=== PATIENT | male | born 1950 | race Caucasian/White ===

== ENCOUNTER 2018-07-09 09:30 | Emergency (ER) | payer OTHER, MEDICARE ==
[2018-07-09] MEDS ORDERED: HYDROmorphone 2 MG/ML SDV IM SCH (10:00)
--- NOTE | 2018-07-09 10:04 | EDM.PDOC ---
ED HPI GENERAL MEDICAL PROBLEM - General Stated Complaint: HIP INJURY Time Seen by Provider: 07/09/18 09:30 Source of Information: Reports: Patient History Limitations: Reports: No Limitations - History of Present Illness INITIAL COMMENTS - FREE TEXT/NARRATIVE: Pt was brought in by EMS to the emergency room. According to patient he just got out of the house and ws trying to get his polaris ranger on to the trailer, slipped on a thin sheet of ice and fell directly on his right hip. Happened around 8 am today. Could not move and had severe pain in the groin and hip and hence called ambulance. No radiation of pain. No other injuries. In the emergency room, Patient rates his pain at 8/10 but with any movement pain goes to 10/10. No tingling or numbness in the right lower extremity. No incontinence of urine or stool. Last meal was around 8 am today. Onset: Today, Sudden Onset Date: 07/09/18 Onset Time: 08:00 Location: Reports: Lower Extremity, Right Quality: Reports: Ache Severity: Severe Improves with: Reports: Immobilization Worsens with: Reports: Movement Context: Reports: Other (fall with direct hit) Associated Symptoms: Denies: Confusion, Chest Pain, Diaphoresis, Fever/Chills, Headaches, Nausea/Vomiting, Rash, Seizure, Shortness of Breath, Syncope, Weakness - Related Data Allergies Allergy/AdvReac Type Severity Reaction Status Date / Time No Known Allergies Allergy Verified 09/06/14 08:41 Home Meds: Home Meds Valsartan [Diovan] 160 mg PO DAILY 02/16/13 [History] hydroCHLOROthiazide [Hydrochlorothiazide] 12.5 mg PO DAILY 02/16/13 [History] Aspirin 325 mg PO DAILY 09/06/14 [History] Past Medical History Cardiovascular History: Reports: Afib Musculoskeletal History: Reports: Back Pain, Chronic Neurological History: Reports: Parkinson's, Other (See Below) Other Neuro History: PTSD - Past Surgical History Musculoskeletal Surgical History: Reports: Knee Replacement Social & Family History - Living Situation & Occupation Living situation: Reports: , Other ED ROS GENERAL - Review of Systems Review Of Systems: See Below Constitutional: Denies: Fever, Chills HEENT: Denies: Rhinitis, Throat Pain Respiratory: Denies: Shortness of Breath, Cough, Sputum Cardiovascular: Denies: Chest Pain, Lightheadedness GI/Abdominal: Denies: Abdominal Pain, Nausea, Vomiting : Denies: Frequency, Urgency Musculoskeletal: Reports: Joint Pain, Joint Swelling Skin: Denies: Bruising, Pruritis, Rash ED EXAM, GENERAL - Physical Exam Exam: See Below Exam Limited By: No Limitations General Appearance: Alert, WD/WN, Moderate Distress Eye Exam: Bilateral Eye: EOMI, PERRL Ears: Normal External Exam, Normal Canal, Hearing Grossly Normal, Normal TMs Nose: Normal Inspection, Normal Mucosa, No Blood Throat/Mouth: Normal Inspection, Normal Lips, Normal Teeth, Normal Gums, Normal Oropharynx, Normal Voice, No Airway Compromise Head: Atraumatic, Normocephalic Neck: Normal Inspection, Supple, Non-Tender, Full Range of Motion Respiratory/Chest: No Respiratory Distress, Lungs Clear, Normal Breath Sounds, No Accessory Muscle Use, Chest Non-Tender Cardiovascular: Normal Peripheral Pulses, No Edema, No Gallop, No JVD, No Murmur , No Rub, Irregularly Irregular GI/Abdominal: Normal Bowel Sounds, Soft, Non-Tender, No Organomegaly, No Distention, No Abnormal Bruit, No Mass Extremities: No Pedal Edema, Normal Capillary Refill (good pedal pulses), Other (Right lower extremity: there is obvious shortenening of the right lower extremity.Also the foot deviates laterally. Very tender over the great trochanter to pressure. + tenderness over the head of the femur to palpation.) Neurological: Alert, Oriented Course - Vital Signs Text/Narrative:: Pt does appear to have acute hip fracture from examination. His Right hip X-ray does show greater trochanter fracture,also the femoral shaft is fracture at the junction of the trochanters, with avulsion fracture of the lesser trochanter. There is minimal swelling of the hip. I have ordered CBC and BMP.Pt rates his pain at 10/10, He did receive Dilaudid 1mg and also IV has beverly started, and will have him on NS at 100cc/hr, and will keep him NPO. Also I did contact . Discuss with referral dispatch manager . Her recommendation was to transfer patient to the nearest available facility that can take care of the patient. I did contact [facility] and discuss patient with Dr. Meneses, Ortho labor relations teacher, he did agree to accept patient. Also discussed patient with Dr. Green, the hospitalist labor relations teacher.Pt is in full body Vacuum mattress and feels comfortable , and his hip is stabilized. I have not tried to splint him. Pt will be transferred by ALS ambulance to [facility]. - Orders/Labs/Meds Labs: Laboratory Tests 07/09/18 07/09/18 Range/Units 10:15 10:15 WBC 11.3 H D (4.0-11.0) K/uL RBC 4.95 (4.50-6.50) M/uL Hgb 16.0 (13.0-18.0) g/dL Hct 46.4 (40.0-54.0) % MCV 94 (76-96) fL MCH 32.3 H (27.0-32.0) pg MCHC 34.5 (31.0-35.0) g/dL RDW 12.2 (11.0-16.0) % Plt Count 303 D (150-400) K/uL MPV 8.7 (6.0-10.0) fL Neut % (Auto) 85.1 H (45.0-70.0) % Lymph % (Auto) 5.0 L (20.0-40.0) % Rowan % (Auto) 9.8 (3.0-10.0) % Eos % (Auto) 0.0 L (1.0-5.0) % Baso % (Auto) 0.1 (0.0-0.5) % Neut # (Auto) 9.60 H (2.00-7.50) K/uL Lymph # (Auto) 0.56 L (1.50-4.00) K/uL Rowan # (Auto) 1.11 H (0.20-0.80) K/uL Eos # (Auto) 0.00 L (0.04-0.40) K/uL Baso # (Auto) 0.01 L (0.02-0.10) K/uL Sodium 136 (136-145) mmol/L Potassium 4.0 (3.5-5.1) mmol/L Chloride 98 (98-107) mmol/L Carbon Dioxide 26.4 (21.0-32.0) mmol/L Anion Gap 15.6 H (5.0-15.0) mmol/L BUN 28 H D (8-26) mg/dL Creatinine 1.00 (0.70-1.30) mg/dL Est Cr Clr Drug Dosing TNP Estimated GFR (MDRD) > 60 (>60) MLS/MIN BUN/Creatinine Ratio 28.0 H (6-25) Glucose 129 H D (74-100) mg/dL Calcium 8.3 L (8.5-10.1) mg/dL Departure - Departure Time of Disposition: 11:30 Disposition: DC/Tfer to Acute Hospital 02 Condition: Fair Clinical Impression: Fracture of femur, intertrochanteric, right, closed - Discharge Information *PRESCRIPTION DRUG MONITORING PROGRAM REVIEWED*: Not Applicable *COPY OF PRESCRIPTION DRUG MONITORING REPORT IN PATIENT LENIN: Not Applicable - Problem List & Annotations (1) Fracture of femur, intertrochanteric, right, closed SNOMED Code(s): 52906445 Code(s): S72.141A - DISPLACED INTERTROCHANTERIC FRACTURE OF RIGHT FEMUR, INIT Status: Acute Current Visit: Yes - Problem List Review Problem List Initiated/Reviewed/Updated: Yes - Assessment/Plan Assessment:: Right hip great and lesser trochanteric fracture with upper shaft fracture Plan: Pt does appear to have acute hip fracture from examination. His Right hip X-ray does show greater trochanter fracture,also the femoral shaft is fracture at the junction of the trochanters, with avulsion fracture of the lesser trochanter. There is minimal swelling of the hip. I have ordered CBC and BMP.Pt rates his pain at 10/10, He did receive Dilaudid 1mg and also IV has beverly started, and will have him on NS at 100cc/hr, and will keep him NPO. Also I did contact . Discuss with referral dispatch manager . Her recommendation was to transfer patient to the nearest available facility that can take care of the patient. I did contact [facility] and discuss patient with Dr. Meneses, Ortho labor relations teacher, he did agree to accept patient. Also discussed patient with Dr. Green, the hospitalist labor relations teacher.Pt is in full body Vacuum mattress and feels comfortable , and his hip is stabilized. I have not tried to splint him. Normal neurovascular exam of the extremity, good pedal pulses. Pt will be transferred by ALS ambulance to [facility].
[2018-07-09] MEDS ORDERED: HYDROmorphone 2 MG/ML Syringe ONE (10:10)
[2018-07-09] MEDS ORDERED: Sodium Chloride 0.9% 1,000 ML IV SCH (10:30)
--- NOTE | 2018-07-09 10:56 | CR ---
DATE OF SERVICE: 07/09/18 CLINICAL DATA: fall with right hip deformity RIGHT HIP: There is a comminuted displaced intertrochanteric fracture through the proximal right femur. There is medial displacement and angulation of the distal fragment with respect to the proximal. No other acute abnormalities. [id number] [facility]
== END 2018-07-09 12:00 ==
LOC: LB.ED 09:30
DX: S72.141A Displaced intertrochanteric fracture of right femur, initial encounter for closed fracture (principal); I48.92 Unspecified atrial flutter; Z79.899 Other long term (current) drug therapy; Z79.82 Long term (current) use of aspirin; W00.0XXA Fall on same level due to ice and snow, initial encounter
CPT/HCPCS: 36415; 73502-RT; 80048; 85025; 96372; 99284-25; A0425; A0429; J1170; J7030

== ENCOUNTER 2019-09-24 08:37 | Emergency (ER) | payer OTHER, MEDICARE ==
[2019-09-24 09:26] VITALS: BP 123/81
--- NOTE | 2019-09-24 11:08 | EDM.PDOC ---
ED HPI GENERAL MEDICAL PROBLEM - General Stated Complaint: Right foot pain Time Seen by Provider: 09/24/19 09:30 Source of Information: Reports: Patient History Limitations: Reports: No Limitations - History of Present Illness INITIAL COMMENTS - FREE TEXT/NARRATIVE: This is a 69yo M with an injury of the right lower ankle for the past week. He has been non-weight bearing and has swelling that has improved the the past few days. He denies any other injuries or concerns. Onset: Sudden Duration: Week(s): Location: Reports: Lower Extremity, Right Quality: Reports: Ache, Pressure Severity: Moderate Improves with: Reports: None Worsens with: Reports: Movement Associated Symptoms: Reports: No Other Symptoms Treatments MACHINE MARKER: Reports: Acetaminophen - Related Data Allergies Allergy/AdvReac Type Severity Reaction Status Date / Time No Known Allergies Allergy Verified 02/09/19 12:47 Home Meds: Home Meds Valsartan [Diovan] 320 mg PO DAILY 02/16/13 [History] hydroCHLOROthiazide [Hydrochlorothiazide] 25 mg PO DAILY 02/16/13 [History] Budesonide/Formoterol [Symbicort 160-4.5 MCG] 1 puff INH BID 07/09/18 [History] Carbidopa/Levodopa [Carbidopa-Levo ER 25-100] 1 tab PO TID 07/09/18 [History] Citalopram [Citalopram HBr] 20 mg PO DAILY 07/09/18 [History] Diltiazem HCl [Diltiazem 24Hr ER] 120 mg PO DAILY 07/09/18 [History] Multivitamin [Multivitamins] 1 tab PO DAILY 07/09/18 [History] Nitroglycerin 0.4 mg SL ASDIRECTED 07/09/18 [History] Acetaminophen/Diphenhydramine [Tylenol Pm Ex-Strength Caplet] 2 tab PO BEDTIME 02/05/19 [History] Aspirin [Lela Chewable Aspirin] 81 mg PO DAILY 02/05/19 [History] Calcitonin,[place],Synthetic [Calcitonin-[place]] 1 spray STANLEY DAILY 02/05/19 [ History] Hydrocodone/Acetaminophen [Hydrocodon-Acetaminophen 5-325] 1 tab PO Q6HR PRN 02/14 [History] Past Medical History HEENT History: Reports: None Cardiovascular History: Reports: Afib Musculoskeletal History: Reports: Back Pain, Chronic Neurological History: Reports: Parkinson's, Other (See Below) Other Neuro History: PTSD Endocrine/Metabolic History: Reports: None Hematologic History: Reports: None - Past Surgical History HEENT Surgical History: Reports: None Musculoskeletal Surgical History: Reports: Knee Replacement Social & Family History - Family History Family Medical History: Noncontributory - Living Situation & Occupation Living situation: Reports: , Other Review of Systems - Review of Systems Review Of Systems: Comprehensive ROS is negative, except as noted in HPI. ED EXAM, GENERAL - Physical Exam Exam: See Below Exam Limited By: No Limitations General Appearance: Alert, WD/WN, No Apparent Distress Ears: Normal External Exam Nose: Normal Inspection Throat/Mouth: Normal Inspection Head: Atraumatic, Normocephalic Neck: Normal Inspection Respiratory/Chest: No Respiratory Distress, Lungs Clear, Normal Breath Sounds Cardiovascular: Normal Peripheral Pulses, Regular Rate, Rhythm Peripheral Pulses: 2+: Dorsalis Pedis (L), Dorsalis Pedis (R) GI/Abdominal: Normal Bowel Sounds Extremities: Pedal Edema (Right ankle and foot), Redness Neurological: Alert, Oriented Psychiatric: Normal Affect, Normal Mood Skin Exam: Ecchymosis, Increased Warmth Course - Vital Signs Last Recorded V/S: Last Vital Signs Temp 36.7 C 09/24/19 09:22 Pulse Resp 14 09/24/19 09:22 BP 123/81 09/24/19 09:22 Pulse Ox 98 09/24/19 09:22 - Orders/Labs/Meds Orders: Active Orders 24 hr Category Date Time Status Foot 2V Rt [CR] Stat Exams 09/24/19 09:17 Taken Departure - Departure Time of Disposition: 09:45 Disposition: Home, Self-Care 01 Condition: Good Clinical Impression: Right ankle sprain Qualifiers: Encounter type: initial encounter Involved ligament of ankle: other ligament Qualified Code(s): S93.491A - Sprain of other ligament of right ankle, initial encounter - Discharge Information Instructions: Ankle Sprain, [id number], Acute Pain, Adult Referrals: PCP,None [Primary Care Provider] - Additional Instructions: Follow up in 1 week in clinic withDr. Quo. Ice elevate above the heart. Tylenol and Ibuprofen alternating. Venu wrap off at night and back on in AM. Sepsis Event Note - Evaluation Sepsis Screening Result: No Definite Risk - Focused Exam Vital Signs: Vital Signs Temp Resp BP Pulse Ox 09/24/19 09:22 36.7 C 14 123/81 98 Date Exam was Performed: 09/24/19 Time Exam was Performed: 11:03 - Problem List & Annotations (1) Right ankle sprain SNOMED Code(s): 07102402 Code(s): S93.401A - SPRAIN OF UNSPECIFIED LIGAMENT OF RIGHT ANKLE, INIT ENCNTR Status: Acute Priority: High Qualifiers: Encounter type: initial encounter Involved ligament of ankle: other ligament Qualified Code(s): S93.491A - Sprain of other ligament of right ankle , initial encounter - Problem List Review Problem List Initiated/Reviewed/Updated: Yes - My Orders Last 24 Hours: My Active Orders 09/24/19 09:17 Foot 2V Rt [CR] Stat - Assessment/Plan Last 24 Hours: My Active Orders 09/24/19 09:17 Foot 2V Rt [CR] Stat Plan: Counseled on supportive and conservative care and management. Discussed close f/ u and rtc or ER for repeat xray and evaluation if symptoms do not improve, or worse. Counseled on f/u. Discussed use of a boot and wrap.
--- NOTE | 2019-09-24 13:23 | CR ---
DATE OF SERVICE: 09/24/19 CLINICAL DATA: Foot injury. RIGHT FOOT: No priors. There are osteoarthritic changes involving multiple joints. There is a corticated osseous density in the lateral aspect of the foot adjacent to the talonavicular joint, most likely representing an old bony avulsion. No acute abnormalities. There are vascular calcifications in the soft tissues. [id number] [facility]
== END 2019-09-24 09:40 | disposition home or self-care (01) ==
LOC: LB.ED 08:37
DX: S93.491A Sprain of other ligament of right ankle, initial encounter (principal); I48.91 Unspecified atrial fibrillation; G20 Parkinson's disease; Z79.899 Other long term (current) drug therapy; Z79.82 Long term (current) use of aspirin; X58.XXXA Exposure to other specified factors, initial encounter
CPT/HCPCS: 73620-RT; 99282; 99283-25

== ENCOUNTER 2020-05-14 15:04 | Emergency (ER) | payer OTHER, MEDICARE ==
--- NOTE | 2020-05-14 15:51 | EDM.PDOC ---
ED HPI GENERAL MEDICAL PROBLEM - General Chief Complaint: Cardiovascular Problem Stated Complaint: NAUSEA/VOMITING Time Seen by Provider: 05/14/20 17:15 Source of Information: Reports: Patient - History of Present Illness Onset: Today Onset Date: 05/14/20 Onset Time: 12:30 Duration: Hour(s):, Improving Location: Reports: Chest, Other (vomiting, sweats) Severity: Mild Improves with: Reports: Other (Nitro too 2 pills ) Associated Symptoms: Reports: Nausea/Vomiting Treatments [employer]KE DES[employer]ER: Reports: Nitroglycerin - Related Data Allergies Allergy/AdvReac Type Severity Reaction Status Date / Time No Known Allergies Allergy Verified 05/14/20 19:18 Home Meds: Home Meds Valsartan [Diovan] 320 mg PO DAILY 02/16/13 [History] hydroCHLOROthiazide [Hydrochlorothiazide] 25 mg PO DAILY 02/16/13 [History] Budesonide/Formoterol [Symbicort 160-4.5 MCG] 1 puff INH BID 07/09/18 [History] Carbidopa/Levodopa [Carbidopa-Levo ER 25-100] 1 tab PO TID 07/09/18 [History] Citalopram [Citalopram HBr] 20 mg PO DAILY 07/09/18 [History] Diltiazem HCl [Diltiazem 24Hr ER] 120 mg PO DAILY 07/09/18 [History] Multivitamin [Multivitamins] 1 tab PO DAILY 07/09/18 [History] Nitroglycerin 0.4 mg SL ASDIRECTED 07/09/18 [History] Acetaminophen/Diphenhydramine [Tylenol Pm Ex-Strength Caplet] 2 tab PO BEDTIME 02/05/19 [History] Aspirin [Lela Chewable Aspirin] 81 mg PO DAILY 02/05/19 [History] Calcitonin,[place],Synthetic [Calcitonin-[place]] 1 spray STANLEY DAILY 02/05/19 [History] Hydrocodone/Acetaminophen [Hydrocodon-Acetaminophen 5-325] 1 tab PO Q6HR PRN 02/05/19 [History] Past Medical History HEENT History: Reports: None Cardiovascular History: Reports: Afib Musculoskeletal History: Reports: Back Pain, Chronic Neurological History: Reports: Parkinson's, Other (See Below) Other Neuro History: PTSD Endocrine/Metabolic History: Reports: None Hematologic History: Reports: None - Past Surgical History HEENT Surgical History: Reports: None Musculoskeletal Surgical History: Reports: Knee Replacement Social & Family History - Family History Family Medical History: No Pertinent Family History - Living Situation & Occupation Living situation: Reports: , Other ED ROS GENERAL - Review of Systems Review Of Systems: See Below Constitutional: Reports: Fever, Diaphoresis HEENT: Reports: No Symptoms Respiratory: Reports: No Symptoms Cardiovascular: Reports: Other (a fib) Endocrine: Reports: No Symptoms Musculoskeletal: Reports: Joint Pain (rt shoulder) Skin: Reports: Bruising Neurological: Reports: No Symptoms Psychiatric: Reports: No Symptoms Hematologic/Lymphatic: Reports: Easy Bruising Immunologic: Reports: No Symptoms ED EXAM, GENERAL - Physical Exam Exam: See Below Exam Limited By: Other (In wheelchair unable to ambulate) General Appearance: Alert, No Apparent Distress Eye Exam: Bilateral Eye: PERRL Ears: Normal External Exam Nose: Normal Inspection, Normal Mucosa Throat/Mouth: Normal Inspection Head: Atraumatic, Normocephalic Neck: Normal Inspection, Supple Respiratory/Chest: No Respiratory Distress, Other (Exp wheeze Rt lung) Cardiovascular: Irregularly Irregular GI/Abdominal: Normal Bowel Sounds, Soft, Non-Tender, Distended (umbilical hernia), Hernia, Other (Male) Exam: Deferred Rectal (Males) Exam: Deferred Neurological: Alert, Oriented, CN II-XII Intact Psychiatric: Normal Affect, Normal Mood Skin Exam: Warm, Dry (bruising) Lymphatic: No Adenopathy Course - Vital Signs Last Recorded V/S: Last Vital Signs Temp 35.6 C L 05/14/20 15:49 Pulse 108 H 05/14/20 15:49 Resp 20 05/14/20 15:49 BP 101/64 05/14/20 15:49 Pulse Ox 93 L 05/14/20 15:49 - Orders/Labs/Meds Orders: Active Orders 24 hr Category Date Time Status EKG Documentation Completion [RC] ASDIRECTED Care 05/14/20 15:59 Active CXR [Chest 1V Frontal] [CR] Stat Exams 05/14/20 15:57 Taken Chest 2V [CR] Stat Exams 05/14/20 Taken UA W/MICROSCOPIC [URIN] Stat Lab 05/14/20 16:29 Ordered Gabapentin [Neurontin] Med 05/14/20 16:45 Active 600 mg PO DAILY Levofloxacin/Dextrose 5%-Water [Levaquin in D5W 750 MG/ Med 05/14/20 17:14 Active 150 ML] 750 mg Levofloxacin/Dextrose 5%-Water [Levaquin in D5W 750 MG/ 150 ML] 150 ml IV ONETIME Ondansetron [Zofran ODT] Med 05/14/20 16:50 Active 4 mg PO Q4H PRN Isolation [COMM] Routine Oth 05/14/20 16:02 Active Medication Orders Gabapentin (Neurontin) 600 mg PO DAILY SAI Levofloxacin/Dextrose 750 mg/ (Levofloxacin/Dextrose) 300 mls @ 100 mls/hr IV ONETIME ONE Stop: 05/14/20 20:13 Ondansetron HCl (Zofran Odt) 4 mg PO Q4H PRN PRN Reason: Nausea/Vomiting Labs: Laboratory Tests 05/14/20 05/14/20 05/14/20 Range/Units 15:59 16:00 16:23 WBC 13.2 H D (4.0-11.0) K/uL RBC 4.07 L (4.50-6.50) M/uL Hgb 13.1 (13.0-18.0) g/dL Hct 39.5 L (40.0-54.0) % MCV 97 H (76-96) fL MCH 32.2 H (27.0-32.0) pg MCHC 33.2 (31.0-35.0) g/dL RDW 12.9 (11.0-16.0) % Plt Count 389 (150-400) K/uL MPV 9.1 (6.0-10.0) fL D-Dimer, Quantitative (0-400) ng/mL Sodium 138 (136-145) mmol/L Potassium 4.0 (3.5-5.1) mmol/L Chloride 100 (98-107) mmol/L Carbon Dioxide 28.3 (21.0-32.0) mmol/L Anion Gap 13.7 (5.0-15.0) mmol/L BUN 23 D (8-26) mg/dL Creatinine 1.54 H D (0.70-1.30) mg/dL Est Cr Clr Drug Dosing 44.00 mL/min Estimated GFR (MDRD) 45 L (>60) MLS/MIN BUN/Creatinine Ratio 14.9 (6-25) Glucose 131 H (74-100) mg/dL Lactic Acid (0.4-2.0) mmol/L Calcium 9.6 (8.5-10.1) mg/dL Total Bilirubin 0.3 D (0.0-1.0) mg/dL AST 12 L (15-37) U/L ALT 12 (12-78) U/L Alkaline Phosphatase 62 (46-116) U/L Troponin I (0.000-0.060) ng/mL B-Natriuretic Peptide (0-125) pg/mL Total Protein 7.2 (6.4-8.2) g/dL Albumin 3.6 (3.4-5.0) g/dL Globulin 3.6 (2.2-4.2) g/dL Albumin/Globulin Ratio 1.0 (0.8-2.0) SARS CoV-2 RNA Rapid GEOVANNA Negative 05/14/20 05/14/20 05/14/20 Range/Units 16:54 17:00 17:04 WBC (4.0-11.0) K/uL RBC (4.50-6.50) M/uL Hgb (13.0-18.0) g/dL Hct (40.0-54.0) % MCV (76-96) fL MCH (27.0-32.0) pg MCHC (31.0-35.0) g/dL RDW (11.0-16.0) % Plt Count (150-400) K/uL MPV (6.0-10.0) fL D-Dimer, Quantitative 1200 H (0-400) ng/mL Sodium (136-145) mmol/L Potassium (3.5-5.1) mmol/L Chloride (98-107) mmol/L Carbon Dioxide (21.0-32.0) mmol/L Anion Gap (5.0-15.0) mmol/L BUN (8-26) mg/dL Creatinine (0.70-1.30) mg/dL Est Cr Clr Drug Dosing mL/min Estimated GFR (MDRD) (>60) MLS/MIN BUN/Creatinine Ratio (6-25) Glucose (74-100) mg/dL Lactic Acid 2.6 H (0.4-2.0) mmol/L Calcium (8.5-10.1) mg/dL Total Bilirubin (0.0-1.0) mg/dL AST (15-37) U/L ALT (12-78) U/L Alkaline Phosphatase (46-116) U/L Troponin I < 0.017 (0.000-0.060) ng/mL B-Natriuretic Peptide 181 H (0-125) pg/mL Total Protein (6.4-8.2) g/dL Albumin (3.4-5.0) g/dL Globulin (2.2-4.2) g/dL Albumin/Globulin Ratio (0.8-2.0) SARS CoV-2 RNA Rapid GEOVANNA Meds: Medications Generic Name Dose Route Start Last Admin Trade Name Freq PRN Reason Stop Dose Admin Gabapentin 600 mg 05/14/20 16:45 Neurontin PO DAILY SAI Levofloxacin/Dextrose 750 mg/ 300 mls @ 100 mls/hr 05/14/20 17:14 Levofloxacin/Dextrose IV 05/14/20 20:13 ONETIME ONE Ondansetron HCl 4 mg 05/14/20 16:50 Zofran Odt PO Q4H PRN Nausea/Vomiting Discontinued Medications Generic Name Dose Route Start Last Admin Trade Name Freq PRN Reason Stop Dose Admin Carbidopa/Levodopa 1 tab 05/14/20 16:15 Sinemet 25-100 Mg PO 05/14/20 16:16 ONETIME ONE Levofloxacin/Dextrose Confirm 05/14/20 17:48 Levaquin In D5w 750 Mg/150 Ml Administered 05/14/20 17:49 Dose 150 mls @ as directed IV .STK-MED ONE Ondansetron HCl Confirm 05/14/20 17:01 Zofran Odt Administered 05/14/20 17:02 Dose 4 mg .ROUTE .STK-MED ONE Departure - Departure Time of Disposition: 07:45 Disposition: Home, Self-Care 01 Condition: Good Clinical Impression: Atrial fibrillation, UTI symptoms Clinical Impression: (Ruled Out): Urinary (tract) obstruction Instructions: Atrial Fibrillation, [id number] Forms: ED Department Discharge Additional Instructions: Finish all medications prescribed. Increase fluid in take. F/U with PCP on Saturday for re-evaluation and care. RTC clinic for new or worsening symptoms. Cardiology consult discussed with patient for chronic asymptomatic a- fib. He needs medication adjustment for chronic a-fib. Sepsis Event Note (ED) - Focused Exam Vital Signs: Vital Signs Temp Pulse Resp BP Pulse Ox 05/14/20 15:49 35.6 C L 108 H 20 101/64 93 L - My Orders Last 24 Hours: My Active Orders 05/14/20 Chest 2V [CR] Stat 05/14/20 15:57 CXR [Chest 1V Frontal] [CR] Stat 05/14/20 15:59 EKG Documentation Completion [RC] ASDIRECTED 05/14/20 16:02 Isolation [COMM] Routine 05/14/20 16:29 UA W/MICROSCOPIC [URIN] Stat 05/14/20 16:45 Gabapentin [Neurontin] 600 mg PO DAILY 05/14/20 16:50 Ondansetron [Zofran ODT] 4 mg PO Q4H PRN 05/14/20 17:14 Levofloxacin/Dextrose 5%-Water [Levaquin in D5W 750 MG/150 ML] 750 mg Levofloxacin/Dextrose 5%-Water [Levaquin in D5W 750 MG/150 ML] 150 ml IV ONETIME - Assessment/Plan Last 24 Hours: My Active Orders 05/14/20 Chest 2V [CR] Stat 05/14/20 15:57 CXR [Chest 1V Frontal] [CR] Stat 05/14/20 15:59 EKG Documentation Completion [RC] ASDIRECTED 05/14/20 16:02 Isolation [COMM] Routine 05/14/20 16:29 UA W/MICROSCOPIC [URIN] Stat 05/14/20 16:45 Gabapentin [Neurontin] 600 mg PO DAILY 05/14/20 16:50 Ondansetron [Zofran ODT] 4 mg PO Q4H PRN 05/14/20 17:14 Levofloxacin/Dextrose 5%-Water [Levaquin in D5W 750 MG/150 ML] 750 mg Levofloxacin/Dextrose 5%-Water [Levaquin in D5W 750 MG/150 ML] 150 ml IV ONETIME
[2020-05-14 15:56] VITALS: BP 101/64; PULSE 108
[2020-05-14] MEDS ORDERED: Carbidopa/Levodopa 25-100 MG Tab PO ONE (16:15)
[2020-05-14] MEDS ORDERED: Gabapentin 600 MG Tab PO SCH (16:45)
[2020-05-14] MEDS ORDERED: Ondansetron 4 MG Tab.DIS PO PRN (16:50)
[2020-05-14] MEDS ORDERED: Ondansetron 4 MG Tab.DIS ONE (17:01)
[2020-05-14] MEDS ORDERED: Levofloxacin/Dextrose 5%-Water 750 MG in Levofloxacin/Dextrose 5%-Water 150 ML IV ONE (17:14)
[2020-05-14] MEDS ORDERED: Levofloxacin/Dextrose 5%-Water 150 ML IV ONE (17:48)
[2020-05-14] MEDS ORDERED: Levofloxacin 500 MG Tab ONE ×2 (19:12→19:20)
--- NOTE | 2020-05-15 14:15 | CR ---
DATE OF SERVICE: 05/14/20 CLINICAL DATA: atrial fib AP CHEST: Comparison is made to a prior exam dated 04/07/13. The heart size is normal. The aorta is calcified and ectatic. The superior mediastinum does appear to be mildly widened. The ascending aorta also appears to be prominent, suggesting the possibility of aortic valve disease. CT scan should be considered to evaluate the mediastinal widening. There are atelectatic changes in the right lung base with mild eventration of the right hemidiaphragm. The lungs are otherwise clear. No pneumothorax. No pleural effusions. [id number] [facility]
--- NOTE | 2020-05-15 14:17 | CR ---
DATE OF SERVICE: 05/14/20 CLINICAL DATA: ATRIAL FIB AP AND LATERAL CHEST: Comparison is made to a prior exam from earlier. There is persistent widening of the mediastinum and prominence of the ascending aorta. Chest CT may be helpful. [id number] [facility]
== END 2020-05-14 19:31 | disposition home or self-care (01) ==
LOC: LB.ED 15:04
DX: I48.91 Unspecified atrial fibrillation (principal); R11.2 Nausea with vomiting, unspecified; G20 Parkinson's disease; Z79.899 Other long term (current) drug therapy; Z20.822 Contact with and (suspected) exposure to COVID-19
CPT/HCPCS: 36415; 71045; 71046; 80053; 83605; 83880; 84484; 85027; 85379; 87804; 87804-59; 93005; 96365; 99285-25; A9270-GY; J1956; U0002

== ENCOUNTER 2020-05-16 09:06 | Emergency (ER) | payer OTHER, MEDICARE ==
[~2020-05-16 09:06] MED LIST: Ondansetron 4 MG/2 ML SDV IM SCH
[2020-05-16 10:24] VITALS: BP 91/44
[2020-05-16] MEDS: Ondansetron 4 MG/2 ML SDV ONE ×2 (11:00→11:57)
[2020-05-16] MEDS ORDERED: Levofloxacin/Dextrose 5%-Water 750 MG in Levofloxacin/Dextrose 5%-Water 150 ML IV ONE (11:28)
[2020-05-16] MEDS ORDERED: Levofloxacin/Dextrose 5%-Water 150 ML IV ONE (11:53)
[2020-05-16 12:16] VITALS: PULSE 63
--- NOTE | 2020-05-16 12:28 | EDM.PDOC ---
ED HPI GENERAL MEDICAL PROBLEM - General Chief Complaint: General Stated Complaint: JERKY MOVEMENTS Time Seen by Provider: 05/16/20 10:20 Source of Information: Reports: Patient, Family History Limitations: Reports: Other (acutely ill) - History of Present Illness Onset: Other (3 days) Duration: Day(s):, Getting Worse Location: Reports: Other (abdomen pelvis) Associated Symptoms: Reports: Fever/Chills, Nausea/Vomiting (unable to void, increased tremor) Treatments [employer]: Reports: Other (see below) (Zosyn, O2, NS) Pelvic Pain Score (Numeric/FACES): 2 - Related Data Allergies Allergy/AdvReac Type Severity Reaction Status Date / Time No Known Allergies Allergy Verified 05/16/20 09:58 Home Meds: Home Meds RX: Valsartan [Diovan] 320 mg PO DAILY 02/16/13 [History] RX: hydroCHLOROthiazide [Hydrochlorothiazide] 25 mg PO DAILY 02/16/13 [History] Budesonide/Formoterol [Symbicort 160-4.5 MCG] 1 puff INH BID PRN 07/09/18 [History] Carbidopa/Levodopa [Carbidopa-Levo ER 25-100] 1 tab PO QID 07/09/18 [History] Citalopram [Citalopram HBr] 40 mg PO DAILY 07/09/18 [History] Diltiazem HCl [Diltiazem 24Hr ER] 120 mg PO DAILY 07/09/18 [History] RX: Multivitamin [Multivitamins] 1 tab PO DAILY 07/09/18 [History] RX: Nitroglycerin 0.4 mg SL ASDIRECTED 07/09/18 [History] Acetaminophen/Diphenhydramine [Tylenol Pm Ex-Strength Caplet] 2 tab PO BEDTIME 02/05/19 [History] Calcitonin,[place],Synthetic [Calcitonin-[place]] 1 spray STANLEY DAILY 02/05/19 [History] RX: Aspirin [Lela Chewable Aspirin] 81 mg PO DAILY 02/05/19 [History] RX: Hydrocodone/Acetaminophen [Hydrocodon-Acetaminophen 5-325] 1 tab PO Q6HR PRN 02/05/19 [History] Cholecalciferol (Vitamin D3) [Vitamin D3] 1,000 unit PO DAILY 05/16/20 [History] Cyanocobalamin (Vitamin B-12) [B-12] 1,000 mcg PO DAILY 05/16/20 [History] Gabapentin [Neurontin] 100 mg PO TID 05/16/20 [History] Metoprolol Succinate [Toprol XL 50mg] 50 mg PO DAILY 05/16/20 [History] Past Medical History HEENT History: Reports: None Cardiovascular History: Reports: Afib Musculoskeletal History: Reports: Back Pain, Chronic Neurological History: Reports: Parkinson's, Other (See Below) Other Neuro History: PTSD Endocrine/Metabolic History: Reports: None Hematologic History: Reports: None - Past Surgical History HEENT Surgical History: Reports: None Musculoskeletal Surgical History: Reports: Knee Replacement Social & Family History - Family History Family Medical History: No Pertinent Family History - Living Situation & Occupation Living situation: Reports: , Other ED ROS GENERAL - Review of Systems Review Of Systems: Comprehensive ROS is negative, except as noted in HPI. Constitutional: Reports: Chills, Malaise, Weakness HEENT: Reports: No Symptoms GI/Abdominal: Reports: Abdominal Pain, Nausea, Other (pelvic pain) : Reports: Hematuria, Pain, Urinary Retention Musculoskeletal: Reports: Leg Pain Skin: Reports: Dryness, Other (bruising ) Neurological: Reports: Other (increased tremor Parkinson history) Psychiatric: Reports: No Symptoms Hematologic/Lymphatic: Reports: Easy Bruising ED EXAM, GENERAL - Physical Exam Exam: See Below Exam Limited By: No Limitations Eye Exam: Bilateral Eye: PERRL Ears: Normal External Exam Nose: Normal Inspection, Normal Mucosa Throat/Mouth: Other (dry) Neck: Normal Inspection GI/Abdominal: Normal Bowel Sounds, Non-Tender, Other (distended) (Male) Exam: Other (unable to void, hematuria, pelvic pain) Rectal (Males) Exam: Deferred Extremities: Normal Inspection Neurological: Alert, Oriented, CN II-XII Intact Psychiatric: Normal Affect, Normal Mood Skin Exam: Warm (easy bruising), Dry Lymphatic: No Adenopathy Course - Vital Signs Last Recorded V/S: Last Vital Signs Temp 36.6 C 05/16/20 12:15 Pulse 63 05/16/20 12:15 Resp 20 05/16/20 12:15 BP 91/44 L 05/16/20 09:45 Pulse Ox 97 05/16/20 12:15 - Orders/Labs/Meds Orders: Active Orders 24 hr Category Date Time Status EKG Documentation Completion [RC] ASDIRECTED Care 05/16/20 11:34 Active EKG Documentation Completion [RC] ASDIRECTED Care 05/16/20 12:00 Active Abdomen Pelvis wo Cont [CT] Stat Exams 05/16/20 11:25 Taken CORONAVIRUS COVID-19 GEOVANNA [MOLEC] Stat Lab 05/16/20 12:12 Received Levofloxacin/Dextrose 5%-Water [Levaquin in D5W 750 MG/ Med 05/16/20 11:28 Active 150 ML] 750 mg Levofloxacin/Dextrose 5%-Water [Levaquin in D5W 750 MG/ 150 ML] 150 ml IV ONETIME Piperacillin/Tazobactam [Zosyn] 3.375 gm Med 05/16/20 12:30 Active Sodium Chloride 0.9% [Normal Saline] 100 ml IV Q6H Medication Orders Levofloxacin/Dextrose 750 mg/ (Levofloxacin/Dextrose) 300 mls @ 100 mls/hr IV ONETIME ONE Stop: 05/16/20 14:27 Last Admin: 05/16/20 12:14 Dose: Not Given Documented by: TRISTAN Piperacillin Sod/Tazobactam (Sod 3.375 gm/ Sodium Chloride) 100 mls @ 100 mls/hr IV Q6H SAI Labs: Laboratory Tests 05/16/20 05/16/20 05/16/20 Range/Units 10:35 10:58 11:07 WBC 11.3 H (4.0-11.0) K/uL RBC 3.43 L (4.50-6.50) M/uL Hgb 10.9 L (13.0-18.0) g/dL Hct 33.1 L (40.0-54.0) % MCV 97 H (76-96) fL MCH 31.8 (27.0-32.0) pg MCHC 32.9 (31.0-35.0) g/dL RDW 13.0 (11.0-16.0) % Plt Count 307 D (150-400) K/uL MPV 8.9 (6.0-10.0) fL Neut % (Auto) 77.2 H (45.0-70.0) % Lymph % (Auto) 9.8 L (20.0-40.0) % [place] % (Auto) 9.2 (3.0-10.0) % Eos % (Auto) 3.4 (1.0-5.0) % Baso % (Auto) 0.4 (0.0-0.5) % Neut # (Auto) 8.74 H (2.00-7.50) K/uL Lymph # (Auto) 1.11 L (1.50-4.00) K/uL [place] # (Auto) 1.04 H (0.20-0.80) K/uL Eos # (Auto) 0.38 (0.04-0.40) K/uL Baso # (Auto) 0.04 (0.02-0.10) K/uL Sodium 129 L (136-145) mmol/L Potassium 4.2 (3.5-5.1) mmol/L Chloride 94 L (98-107) mmol/L Carbon Dioxide 26.8 (21.0-32.0) mmol/L Anion Gap 12.4 (5.0-15.0) mmol/L BUN 36 H D (8-26) mg/dL Creatinine 3.34 H* D (0.70-1.30) mg/dL Est Cr Clr Drug Dosing 20.29 mL/min Estimated GFR (MDRD) 18 L (>60) MLS/MIN BUN/Creatinine Ratio 10.8 (6-25) Glucose 105 H (74-100) mg/dL Lactic Acid (0.4-2.0) mmol/L Calcium 8.8 (8.5-10.1) mg/dL Total Bilirubin 0.4 D (0.0-1.0) mg/dL AST 9 L (15-37) U/L ALT 9 L (12-78) U/L Alkaline Phosphatase 55 (46-116) U/L Total Protein 6.5 (6.4-8.2) g/dL Albumin 3.2 L (3.4-5.0) g/dL Globulin 3.3 (2.2-4.2) g/dL Albumin/Globulin Ratio 1.0 (0.8-2.0) Urine Color Yellow Urine Appearance Slightly cloudy (CLEAR) Urine pH 5.0 (5.0-8.0) Ur Specific [place] >= 1.030 (1.003-1.030) Urine Protein Negative (NEGATIVE) mg/dL Urine Glucose (UA) Negative (NEGATIVE) mg/dL Urine Ketones Negative (NEGATIVE) mg/dL Urine Occult Blood Trace-intact H (NEGATIVE) Urine Nitrite Negative (NEGATIVE) Urine Bilirubin Small H (NEGATIVE) Urine Urobilinogen 0.2 (0.2-1.0) E.U./dL Ur Leukocyte Esterase Negative (NEGATIVE) Urine RBC 5-10 H /HPF Urine WBC 0-5 H /HPF Urine Bacteria Few /HPF 05/16/20 Range/Units 11:26 WBC (4.0-11.0) K/uL RBC (4.50-6.50) M/uL Hgb (13.0-18.0) g/dL Hct (40.0-54.0) % MCV (76-96) fL MCH (27.0-32.0) pg MCHC (31.0-35.0) g/dL RDW (11.0-16.0) % Plt Count (150-400) K/uL MPV (6.0-10.0) fL Neut % (Auto) (45.0-70.0) % Lymph % (Auto) (20.0-40.0) % [place] % (Auto) (3.0-10.0) % Eos % (Auto) (1.0-5.0) % Baso % (Auto) (0.0-0.5) % Neut # (Auto) (2.00-7.50) K/uL Lymph # (Auto) (1.50-4.00) K/uL [place] # (Auto) (0.20-0.80) K/uL Eos # (Auto) (0.04-0.40) K/uL Baso # (Auto) (0.02-0.10) K/uL Sodium (136-145) mmol/L Potassium (3.5-5.1) mmol/L Chloride (98-107) mmol/L Carbon Dioxide (21.0-32.0) mmol/L Anion Gap (5.0-15.0) mmol/L BUN (8-26) mg/dL Creatinine (0.70-1.30) mg/dL Est Cr Clr Drug Dosing mL/min Estimated GFR (MDRD) (>60) MLS/MIN BUN/Creatinine Ratio (6-25) Glucose (74-100) mg/dL Lactic Acid 1.0 (0.4-2.0) mmol/L Calcium (8.5-10.1) mg/dL Total Bilirubin (0.0-1.0) mg/dL AST (15-37) U/L ALT (12-78) U/L Alkaline Phosphatase (46-116) U/L Total Protein (6.4-8.2) g/dL Albumin (3.4-5.0) g/dL Globulin (2.2-4.2) g/dL Albumin/Globulin Ratio (0.8-2.0) Urine Color Urine Appearance (CLEAR) Urine pH (5.0-8.0) Ur Specific [place] (1.003-1.030) Urine Protein (NEGATIVE) mg/dL Urine Glucose (UA) (NEGATIVE) mg/dL Urine Ketones (NEGATIVE) mg/dL Urine Occult Blood (NEGATIVE) Urine Nitrite (NEGATIVE) Urine Bilirubin (NEGATIVE) Urine Urobilinogen (0.2-1.0) E.U./dL Ur Leukocyte Esterase (NEGATIVE) Urine RBC /HPF Urine WBC /HPF Urine Bacteria /HPF Meds: Medications Generic Name Dose Route Start Last Admin Trade Name Freq PRN Reason Stop Dose Admin Levofloxacin/Dextrose 750 mg/ 300 mls @ 100 mls/hr 05/16/20 11:28 05/16/20 12:14 Levofloxacin/Dextrose IV 05/16/20 14:27 Not Given ONETIME ONE Piperacillin Sod/Tazobactam 100 mls @ 100 mls/hr 05/16/20 12:30 Sod 3.375 gm/ Sodium Chloride IV Q6H SAI Discontinued Medications Generic Name Dose Route Start Last Admin Trade Name Freq PRN Reason Stop Dose Admin Levofloxacin/Dextrose Confirm 05/16/20 11:53 05/16/20 12:14 Levaquin In D5w 750 Mg/150 Ml Administered 05/16/20 11:54 Not Given Dose 150 mls @ as directed IV .STK-MED ONE Ondansetron HCl Confirm 05/16/20 10:38 05/16/20 11:57 Zofran Administered 05/16/20 10:39 4 mg Dose Administration 4 mg .ROUTE .STK-MED ONE Departure - Departure Time of Disposition: 13:00 Disposition: DC/Tfer to Acute Hospital 02 Condition: Fair Clinical Impression: NESS (acute kidney injury), Sepsis associated hypotension - Discharge Information *PRESCRIPTION DRUG MONITORING PROGRAM REVIEWED*: Not Applicable *COPY OF PRESCRIPTION DRUG MONITORING REPORT IN PATIENT LENIN: Not Applicable Instructions: Sepsis, Diagnosis, Adult, Acute Kidney Injury, Adult, Hypotension, [id number] Referrals: PCP,None [Primary Care Provider] - Additional Instructions: Transferred to [facility] Dr. Meléndez accepting physician. ACLS crew by ground. Sepsis Event Note (ED) - Focused Exam Vital Signs: Vital Signs Temp Pulse Resp BP Pulse Ox 05/16/20 12:15 36.6 C 63 20 97 05/16/20 09:45 37.2 C 68 16 91/44 L 99 - Problem List & Annotations (1) NESS (acute kidney injury) SNOMED Code(s): 18497160, 53620993 Code(s): N17.9 - ACUTE KIDNEY FAILURE, UNSPECIFIED Status: Acute Current Visit: Yes (2) Sepsis associated hypotension SNOMED Code(s): 88604645 Code(s): A41.9 - SEPSIS, UNSPECIFIED ORGANISM; I95.9 - HYPOTENSION, UNSPECIFIED Status: Acute Current Visit: Yes - My Orders Last 24 Hours: My Active Orders 05/16/20 11:25 Abdomen Pelvis wo Cont [CT] Stat 05/16/20 11:28 Levofloxacin/Dextrose 5%-Water [Levaquin in D5W 750 MG/150 ML] 750 mg Levofloxacin/Dextrose 5%-Water [Levaquin in D5W 750 MG/150 ML] 150 ml IV ONETIME 05/16/20 11:34 EKG Documentation Completion [RC] ASDIRECTED 05/16/20 12:00 EKG Documentation Completion [RC] ASDIRECTED 05/16/20 12:12 CORONAVIRUS COVID-19 GEOVANNA [MOLEC] Stat 05/16/20 12:30 Piperacillin/Tazobactam [Zosyn] 3.375 gm Sodium Chloride 0.9% [Normal Saline] 100 ml IV Q6H - Assessment/Plan Last 24 Hours: My Active Orders 05/16/20 11:25 Abdomen Pelvis wo Cont [CT] Stat 05/16/20 11:28 Levofloxacin/Dextrose 5%-Water [Levaquin in D5W 750 MG/150 ML] 750 mg Levofloxacin/Dextrose 5%-Water [Levaquin in D5W 750 MG/150 ML] 150 ml IV ONETIME 05/16/20 11:34 EKG Documentation Completion [RC] ASDIRECTED 05/16/20 12:00 EKG Documentation Completion [RC] ASDIRECTED 05/16/20 12:12 CORONAVIRUS COVID-19 GEOVANNA [MOLEC] Stat 05/16/20 12:30 Piperacillin/Tazobactam [Zosyn] 3.375 gm Sodium Chloride 0.9% [Normal Saline] 100 ml IV Q6H Plan: Transfer to [facility], to Dr. Escamilla service.
[2020-05-16] MEDS: Piperacillin/Tazobactam 3.375 GM in Sodium Chloride 0.9% 100 ML IV SCH (12:30)
--- NOTE | 2020-05-17 07:24 | CT ---
Date of Service: 05/16/20 Clinical Data: unable to void, sepsis UNENHANCED ABDOMEN AND PELVIC CT: Multislice acquisition through the abdomen and pelvis without IV or oral contrast was performed. Motion artifact significantly degrades image quality. Comparison is made to a prior exam dated 12/16/18. The heart size is within normal limits. There are moderate coronary artery calcifications. There are calcifications in the region of the aortic valve. No pericardial effusion. There is a small hiatal hernia. There is focal pleural thickening within the right hemithorax posteriorly and medially. There is some spiculation of the adjacent lung parenchyma. This may be related to a prior infectious process or prior trauma. The possibility of a pleural based malignancy should at least be considered. There are mild atelectatic changes in both lung bases. The visualized lungs are otherwise clear. The liver is normal size with homogeneous attenuation. There is a 1.5 cm sharply transcribed fluid density lesion within the left lobe of the liver medial segment consistent with a benign cyst. No other focal hepatic lesions. The gallbladder appears normal. No calcified gallstones. The spleen appears normal. The pancreas is mildly atrophic. The right and left adrenals appear normal. There is mild atrophy at both kidneys. No nephrocalcinosis or nephrolithiasis. No hydronephrosis or hydroureter. There is a Rodriguez catheter within the bladder. The bladder is decompressed. The prostate is mildly enlarged. No evidence of appendicitis. There is diverticulosis of the descending and sigmoid colon. No evidence of diverticulitis. No free air. No free fluid. No dilated loops of bowel. There are scattered air-fluid levels in the transverse colon. Colitis should be considered. No adenopathy. No aortic aneurysm. Patient is status post internal fixation of the right hip. There are partial compression fractures of the T8, T12, L2, and L4 vertebrae. There is degenerative disk disease at multiple levels. There are laminectomy defects at multiple levels. There is heterogeneous sclerosis in the left iliac wing with cortical thickening suspicious for Paget's disease. There are areas of sclerosis within the T8 and L2 vertebrae. Sclerotic metastatic disease should be considered. There are healed rib fractures on the left. No other significant findings. [id number] [facility]
== END 2020-05-16 13:00 ==
LOC: LB.ED 09:06
DX: A41.9 Sepsis, unspecified organism (principal); R65.20 Severe sepsis without septic shock; N17.9 Acute kidney failure, unspecified; I95.9 Hypotension, unspecified; I48.91 Unspecified atrial fibrillation; G20 Parkinson's disease; Z79.82 Long term (current) use of aspirin; Z79.899 Other long term (current) drug therapy; Z20.828 Contact with and (suspected) exposure to other viral communicable diseases
CPT/HCPCS: 36415; 51702; 74176; 80053; 81001; 83605; 85025; 93005; 96365; 96372; 99285; 99285-25; A0425; A0429; J2405; J2543; U0002

== ENCOUNTER 2020-10-11 08:12 | Emergency (ER) | payer OTHER ==
[2020-10-11 10:18] VITALS: BP 150/100; PULSE 86
--- NOTE | 2020-10-11 11:09 | CT ---
DATE OF SERVICE: 10/11/2020 CLINICAL DATA: ABDOMINAL PAIN Unenhanced abdomen and pelvic CT 11 October 2020: Multi slice acquisition through the abdomen and pelvis without IV or oral contrast was performed. Comparison is made to a prior exam dated 16 May 2020. There are atelectatic changes in both lung bases. No pleural effusion. The heart size is normal. There are moderately severe coronary artery calcifications. No pericardial effusion. The liver is normal size. There is a sharply transcribed fluid density lesion within the left lobe of the liver consistent with a benign hepatic cyst. No other focal hepatic lesions. The gallbladder appears normal. No calcified gallstones. No biliary duct dilatation. The spleen appears normal. The pancreas appears normal. The right and left adrenals appear normal. There is mild atrophy of both kidneys. There is a fluid density lesion in the left kidney consistent with a hydro calyx or renal cyst. There is a small nonobstructing renal calculi on the right. No hydronephrosis or hydroureter. There is mild by lateral perinephric fat stranding. This is probably related to aging. There is a small amount of fluid within the bladder. There is apparent diffuse bladder wall thickening. This is most likely related to nondistention. Cystitis should be considered. The prostate is enlarged. The the appendix is not dilated. No evidence of appendicitis. There is a moderate amount of stool noted within the cecum, ascending colon, and transverse colon. There is diverticulosis of the descending and sigmoid colon. There is pericolonic fat stranding adjacent to the distal descending and proximal sigmoid colon consistent with diverticulitis. There are too very small extraluminal gas collection adjacent to the distal descending colon consistent with a contained perforation. No evidence of a diverticular abscess. No dilated loops of bowel. No adenopathy. No aortic aneurysm. No free intraperitoneal air. There is a large fat containing umbilical hernia. There is degenerative disc disease throughout the lower thoracic and lumbar spine with partial compression fractures at multiple levels, unchanged from the prior study. There also sclerotic lesion might in multiple vertebrae and in the left iliac wing, not significantly changed from the prior exam. Paget's disease should be considered. Sclerotic metastatic disease should be considered. The exam is otherwise unchanged from the prior. Impression: Diverticulosis. Findings consistent with diverticulitis of distal descending and proximal sigmoid colon. See above description. No evidence of diverticular abscess. Multiple other findings as discussed above. MTDD
--- NOTE | 2020-10-11 13:13 | ER ---
HISTORY OF PRESENT ILLNESS: A 70-year-old male who comes in with his daughter with complaints of abdominal pain on the left side that he has had since yesterday. He states it hurts when he touches it or rolls on that side. He has had some diarrhea issues, but no blood in the stool. He has not been sick. He has not had any falls or injuries. The patient denies any history of diverticulitis. OBJECTIVE: GENERAL APPEARANCE: The patient is awake and alert. No obvious distress. VITAL SIGNS: Reviewed as listed. LUNGS: Clear. CARDIAC: Heart sounds distinct without murmurs. ABDOMEN: Soft. There is tenderness on the left lower quadrant up to about the umbilical height on the lateral aspect with palpation. There is mild guarding in this area. There is also mild tenderness on the right side of the abdomen at the umbilical line as well. The epigastric portions of the abdomen are normal on exam. Bowel sounds are present and active. SKIN: Warm and dry. LABORATORY DATA AND X-RAY: Labs today include CBC and CMP. They are normal. UA just shows subtle changes. CT of the abdomen is consistent for diverticulitis. DIAGNOSIS: Diverticulitis. TREATMENT PLAN: I will start the patient on Cipro and Flagyl. He is to utilize a soft diet and consider a bulk forming agent if he is having ongoing episodes of diarrhea. Recheck should be in the clinic in 2 or 3 days or as needed. CRS/MODL /[id number]
== END 2020-10-11 12:14 | disposition home or self-care (01) ==
LOC: LB.ED 08:12
DX: K57.32 Diverticulitis of large intestine without perforation or abscess without bleeding (principal)
CPT/HCPCS: 36415; 74176; 80053; 81001; 83690; 85025; 99284-25

== ENCOUNTER 2021-02-09 09:42 | Emergency (ER) | payer OTHER ==
[2021-02-09 10:51] VITALS: BP 139/92
[2021-02-09] MEDS ORDERED: Albuterol/Ipratropium 3.0-0.5 MG/3 ML Neb Soln NEB PRN (10:53)
[2021-02-09 11:39] VITALS: PULSE 65
--- NOTE | 2021-02-09 11:48 | EDM.PDOC ---
ED HPI GENERAL MEDICAL PROBLEM - General Chief Complaint: Respiratory Problem Stated Complaint: SOB Time Seen by Provider: 02/09/21 09:50 - History of Present Illness INITIAL COMMENTS - FREE TEXT/NARRATIVE: Pt comes in by EMS with C/O SOB and Wheezing for a couple days. He also fell a week ago and has a bruise on his forehead and lower leg. Family is also concerned about the pt being confused at times. He has not been running a high fever. No other family members are currently ill. He has been vaccinated for Covid. - Related Data Allergies Allergy/AdvReac Type Severity Reaction Status Date / Time No Known Allergies Allergy Verified 02/09/21 11:31 Home Meds: Home Meds Budesonide/Formoterol [Symbicort 160-4.5 MCG] 1 puff INH BID PRN 07/09/18 [H istory] Carbidopa/Levodopa [Carbidopa-Levo ER 25-100] 1 tab PO QID 07/09/18 [History] Citalopram [Citalopram HBr] 40 mg PO DAILY 07/09/18 [History] Multivitamin [Multivitamins] 1 tab PO DAILY 07/09/18 [History] Nitroglycerin 0.4 mg SL ASDIRECTED 07/09/18 [History] Acetaminophen/Diphenhydramine [Tylenol Pm Ex-Strength Caplet] 2 tab PO BEDTIME 02/05/19 [History] Aspirin [Lela Chewable Aspirin] 81 mg PO DAILY 02/05/19 [History] Calcitonin,Walnut,Synthetic [Calcitonin-Walnut] 1 spray STANLEY DAILY 02/05/19 [History] Hydrocodone/Acetaminophen [HYDROcodone-Acetaminophen 5-325 MG] 1 tab PO Q6HR PRN 02/05/19 [History] Cholecalciferol (Vitamin D3) [Vitamin D3] 1,000 unit PO DAILY 05/16/20 [History] Cyanocobalamin (Vitamin B-12) [B-12] 1,000 mcg PO DAILY 05/16/20 [History] Gabapentin [Neurontin] 100 mg PO TID 05/16/20 [History] Metoprolol Succinate [Toprol XL 50mg] 25 mg PO DAILY 05/16/20 [History] Past Medical History HEENT History: Reports: None Cardiovascular History: Reports: Afib Other Gastrointestinal History: constipation at times Musculoskeletal History: Reports: Back Pain, Chronic Neurological History: Reports: Parkinson's, Other (See Below) Other Neuro History: PTSD Endocrine/Metabolic History: Reports: None Hematologic History: Reports: None - Past Surgical History HEENT Surgical History: Reports: None Musculoskeletal Surgical History: Reports: Knee Replacement Other Musculoskeletal Surgeries/Procedures:: uses power chair and lift Social & Family History - Family History Family Medical History: No Pertinent Family History - Tobacco Use Tobacco Use Status *Q: Former Tobacco User Used Tobacco, but Quit: Yes Month/Year Tobacco Last Used: 1994 - Caffeine Use Caffeine Use: Reports: Coffee - Recreational Drug Use Recreational Drug Use: No - Living Situation & Occupation Living situation: Reports: , Other ED ROS GENERAL - Review of Systems Review Of Systems: Comprehensive ROS is negative, except as noted in HPI. Respiratory: Reports: Shortness of Breath, Wheezing ED EXAM, GENERAL - Physical Exam Exam: See Below Head: Other (Mild swelling and bruising above his left eye from previous fall.) Respiratory/Chest: Other (scattered wheezing noted throughout the lung little with reduced A/E.) Extremities: Other (Pt has a hematoma. abrasion to the lower Lt leg Meliza 3 cm in size.) #1 Interpretation EKG Date: 02/09/21 Time: 11:00 Course - Vital Signs Last Recorded V/S: Last Vital Signs Temp 99.8 F 02/09/21 09:55 Pulse 65 02/09/21 11:39 Resp 20 02/09/21 10:44 BP 139/92 H 02/09/21 10:44 Pulse Ox 93 L 02/09/21 11:39 - Orders/Labs/Meds Orders: Active Orders 24 hr Category Date Time Status Chest 1V Frontal [CR] Stat Exams 02/09/21 10:57 Taken Labs: Laboratory Tests 02/09/21 02/09/21 02/09/21 Range/Units 10:00 10:14 10:14 WBC 6.2 D (4.0-11.0) K/uL RBC 4.64 (4.50-6.50) M/uL Hgb 14.5 (13.0-18.0) g/dL Hct 43.1 (40.0-54.0) % MCV 93 (76-96) fL MCH 31.3 (27.0-32.0) pg MCHC 33.6 (31.0-35.0) g/dL RDW 15.1 (11.0-16.0) % Plt Count 193 (150-400) K/uL MPV 9.0 (6.0-10.0) fL Neut % (Auto) 77.7 H (45.0-70.0) % Lymph % (Auto) 10.1 L (20.0-40.0) % [place] % (Auto) 10.6 H (3.0-10.0) % Eos % (Auto) 1.3 (1.0-5.0) % Baso % (Auto) 0.3 (0.0-0.5) % Neut # (Auto) 4.82 (2.00-7.50) K/uL Lymph # (Auto) 0.63 L (1.50-4.00) K/uL [place] # (Auto) 0.66 (0.20-0.80) K/uL Eos # (Auto) 0.08 (0.04-0.40) K/uL Baso # (Auto) 0.02 (0.02-0.10) K/uL Sodium 133 L (136-145) mmol/L Potassium 4.2 (3.5-5.1) mmol/L Chloride 97 L (98-107) mmol/L Carbon Dioxide 29.7 (21.0-32.0) mmol/L Anion Gap 10.5 (5.0-15.0) mmol/L BUN 11 D (8-26) mg/dL Creatinine 0.70 (0.70-1.30) mg/dL Est Cr Clr Drug Dosing 92.29 mL/min Estimated GFR (MDRD) > 60 (>60) MLS/MIN BUN/Creatinine Ratio 15.7 (6-25) Glucose 98 (74-100) mg/dL Lactic Acid (0.4-2.0) mmol/L Calcium 8.9 (8.5-10.1) mg/dL Total Bilirubin 0.4 D (0.0-1.0) mg/dL AST 11 L (15-37) U/L ALT 17 (12-78) U/L Alkaline Phosphatase 67 (46-116) U/L Troponin I < 0.017 (0.000-0.060) ng/mL B-Natriuretic Peptide (0-125) pg/mL Total Protein 6.9 (6.4-8.2) g/dL Albumin 3.3 L (3.4-5.0) g/dL Globulin 3.6 (2.2-4.2) g/dL Albumin/Globulin Ratio 0.9 (0.8-2.0) SARS CoV-2 RNA Rapid GEOVANNA Positive H 02/09/21 02/09/21 Range/Units 10:15 10:15 WBC (4.0-11.0) K/uL RBC (4.50-6.50) M/uL Hgb (13.0-18.0) g/dL Hct (40.0-54.0) % MCV (76-96) fL MCH (27.0-32.0) pg MCHC (31.0-35.0) g/dL RDW (11.0-16.0) % Plt Count (150-400) K/uL MPV (6.0-10.0) fL Neut % (Auto) (45.0-70.0) % Lymph % (Auto) (20.0-40.0) % [place] % (Auto) (3.0-10.0) % Eos % (Auto) (1.0-5.0) % Baso % (Auto) (0.0-0.5) % Neut # (Auto) (2.00-7.50) K/uL Lymph # (Auto) (1.50-4.00) K/uL [place] # (Auto) (0.20-0.80) K/uL Eos # (Auto) (0.04-0.40) K/uL Baso # (Auto) (0.02-0.10) K/uL Sodium (136-145) mmol/L Potassium (3.5-5.1) mmol/L Chloride (98-107) mmol/L Carbon Dioxide (21.0-32.0) mmol/L Anion Gap (5.0-15.0) mmol/L BUN (8-26) mg/dL Creatinine (0.70-1.30) mg/dL Est Cr Clr Drug Dosing mL/min Estimated GFR (MDRD) (>60) MLS/MIN BUN/Creatinine Ratio (6-25) Glucose (74-100) mg/dL Lactic Acid 1.0 (0.4-2.0) mmol/L Calcium (8.5-10.1) mg/dL Total Bilirubin (0.0-1.0) mg/dL AST (15-37) U/L ALT (12-78) U/L Alkaline Phosphatase (46-116) U/L Troponin I (0.000-0.060) ng/mL B-Natriuretic Peptide 1314 H D (0-125) pg/mL Total Protein (6.4-8.2) g/dL Albumin (3.4-5.0) g/dL Globulin (2.2-4.2) g/dL Albumin/Globulin Ratio (0.8-2.0) SARS CoV-2 RNA Rapid GEOVANNA Meds: Medications Discontinued Medications Generic Name Dose Route Start Last Admin Trade Name Freq PRN Reason Stop Dose Admin Albuterol/Ipratropium 3 ml 02/09/21 10:53 02/09/21 10:05 Albuterol/Ipratropium 3.0-0.5 Mg/3 Ml Neb Soln NEB 3 ml Q2H PRN Administration Shortness of Breath CASIRIVIMAB/IMDEVIMAB 10 ml/ 110 mls @ 220 mls/hr 02/09/21 11:45 02/09/21 11:40 Sodium Chloride IV 02/09/21 12:14 220 mls/hr ONETIME ONE Administration Ondansetron HCl Confirm 02/09/21 14:04 02/09/21 14:10 Ondansetron 4 Mg Tab.Dis Administered 02/09/21 14:05 Not Given Dose 4 mg .ROUTE .STK-MED ONE Ondansetron HCl 4 mg 02/09/21 14:09 02/09/21 14:10 Ondansetron 4 Mg Tab.Dis PO 02/09/21 14:10 4 mg ONETIME ONE Administration - Re-Assessments/Exams Free Text/Narrative Re-Assessment/Exam: 02/09/21 11:50 Pt's vitals are stable. His O2 sats have been between 90 to 95% o RA. Labs show a left shift, otherwise are nml. CXR reveals poor inspiration with a possible small effusion versus consolidation in the lower rt lobe. He will be discharged home today. Regeneron will be given here. He will have a Nebulizer and O2 monitor at home. He will be sent home with Duo nebs, Pulmicort nebs, zithromax, and PO prednisone. He is to be monitored closely. Follow up as needed. Departure - Departure Time of Disposition: 12:30 Disposition: Home, Self-Care 01 Clinical Impression: COVID-19 - Discharge Information *PRESCRIPTION DRUG MONITORING PROGRAM REVIEWED*: Yes *COPY OF PRESCRIPTION DRUG MONITORING REPORT IN PATIENT LENIN: Yes Instructions: COVID-19, 10 Things You Can Do to Manage Your COVID-19 Symptoms at Home - [facility] (11/11/2020) Referrals: Charisse Lin NP [Primary Care Provider] - Forms: ED Department Discharge Additional Instructions: He will be sent home with a Nebulizer and home O2 monitor. He will have both Duo nebs and Pulmicort nebs to take as directed. Zithromax and Prednisone will also be sent home. He is to rest with light duty activity as tolerated. Monitor O2 sat's closely. Call back if they drop below 88%. Then either home O2 would be considered, or he could come back in if needed. Sepsis Event Note (ED) - Evaluation Sepsis Screening Result: No Definite Risk - Focused Exam Vital Signs: Vital Signs Temp Pulse Resp BP Pulse Ox 02/09/21 11:39 65 93 L 02/09/21 11:10 97 93 L 02/09/21 11:08 97 96 02/09/21 10:54 102 H 94 L 02/09/21 10:48 95 93 L 02/09/21 10:44 103 H 20 139/92 H 90 L 02/09/21 10:12 96 95 02/09/21 09:55 99.8 F 94 20 180/100 H 90 L 02/09/21 09:50 99.8 F 94 20 180/100 H 90 L - My Orders Last 24 Hours: My Active Orders 02/09/21 10:57 Chest 1V Frontal [CR] Stat - Assessment/Plan Last 24 Hours: My Active Orders 02/09/21 10:57 Chest 1V Frontal [CR] Stat
[2021-02-09] MEDS ORDERED: Ondansetron 4 MG Tab.DIS ONE (14:04)
[2021-02-09] MEDS ORDERED: Ondansetron 4 MG Tab.DIS PO ONE (14:09)
--- NOTE | 2021-02-09 18:46 | CR ---
CLINICAL DATA: SOB. AP CHEST, 09 FEBRUARY 2021: Comparison is made to a prior exam dated 14 May 2020. The patient has taken a very poor inspiration. 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 The heart is enlarged. It has increased in size from the prior exam. There is mild pulmonary vascular congestion. There is increased density in the right mid and lower lung, consistent with infiltrate or atelectasis. Pneumonia should be considered. There is blunting of the right costophrenic angle, consistent with a small right pleural effusion. The left lung appears clear. No pneumothorax. Job: [id number] MTDD
== END 2021-02-09 13:40 | disposition home or self-care (01) ==
LOC: LB.ED 09:42
DX: U07.1 COVID-19 (principal); I48.91 Unspecified atrial fibrillation; Z79.82 Long term (current) use of aspirin; Z87.891 Personal history of nicotine dependence
CPT/HCPCS: 36415; 71045; 80053; 83605; 83880; 84484; 85025; 87635; 93005; 99285; A0425; A0429; A9270; M0243; Q0243; J7620-GY; U0002

== ENCOUNTER 2021-05-12 15:05 | Observation (INO) | payer OTHER ==
[2021-05-12] MEDS ORDERED: NITROGLYCERIN 0.4 MG SL SCH (17:30)
[2021-05-12] MEDS ORDERED: cefTRIAXone 1 GM Vial ONE (17:34)
[2021-05-12] MEDS ORDERED: cefTRIAXone 1 GM Vial IM ONE (17:42)
[2021-05-12] MEDS ORDERED: Gabapentin 100 MG Cap PO ONE (20:00)
[2021-05-12] MEDS ORDERED: [UNRECOGNIZED DRUG - OTHER] PO SCH (20:00)
[2021-05-12] MEDS ORDERED: CARBIDOPA PO SCH (20:00)
[2021-05-12] MEDS ORDERED: LEVODOPA PO SCH (20:00)
[2021-05-12] MEDS: GABAPENTIN 100 MG PO SCH (20:45)
[2021-05-12] MEDS: CARBIDOPA LEVODOPA PO SCH (20:45)
[2021-05-13] MEDS ORDERED: CITALOPRAM 20 MG PO SCH (08:00)
[2021-05-13] MEDS ORDERED: METOPROLOL SUCCINATE 50 MG PO SCH (08:00)
[2021-05-13] MEDS ORDERED: Non-Formulary Medication 1 Each (Metoprolol Succinate [Toprol Xl 50mg] 50 MG Tab.Er) PO SCH (08:00)
[2021-05-13] MEDS: ASPIRIN 81 MG PO SCH (08:23)
[2021-05-13] MEDS: METOPROLOL SUCCINATE 50 MG PO SCH (08:23)
[2021-05-13] MEDS: CARBIDOPA LEVODOPA PO SCH ×4 (08:24→19:45)
[2021-05-13] MEDS: GABAPENTIN 100 MG PO SCH ×3 (08:28→19:45)
[2021-05-13] MEDS ORDERED: Levofloxacin 500 MG Tab PO SCH (15:30)
[2021-05-13] MEDS ORDERED: Menthol/Zinc Oxide Ointment 113 GM Tube TOP ONE (16:43)
[2021-05-13] MEDS ORDERED: cefTRIAXone 1 GM Vial IM SCH (17:00)
[2021-05-14] MEDS: GABAPENTIN 100 MG PO SCH (08:18)
[2021-05-14] MEDS: ASPIRIN 81 MG PO SCH (08:19)
[2021-05-14] MEDS: CARBIDOPA LEVODOPA PO SCH (08:20)
[2021-05-14] MEDS: METOPROLOL SUCCINATE 50 MG PO SCH (08:22)
[2021-05-14 09:48] VITALS: BP 120/74; PULSE 60
[2021-05-14] MEDS ORDERED: Potassium Chloride 20 MEQ Tab.ER ONE (10:04)
[2021-05-14] MEDS ORDERED: Potassium Chloride 20 MEQ Tab.ER PO ONE (10:23)
[2021-05-14] MEDS ORDERED: Nystatin Topical Powder 15 GM Bottle ONE (10:29)
[2021-05-14] MEDS ORDERED: Nystatin Topical Powder 15 GM Bottle TOP SCH (14:00)
== END 2021-05-14 12:35 | disposition home or self-care (01) ==
LOC: LB.ED 15:05 → LB.MS 17:00 → UNDOADMOB 17:00 → LB.MS 17:21
PROVIDERS: ADMIT Physician Assistant; ATTEND Physician Assistant
DX: J18.9 Pneumonia, unspecified organism (principal); K59.00 Constipation, unspecified; I48.91 Unspecified atrial fibrillation; Z01.812 Encounter for preprocedural laboratory examination; Z20.822 Contact with and (suspected) exposure to COVID-19; Z79.899 Other long term (current) drug therapy
CPT/HCPCS: 36415; 71045; 74176; 80048; 80053; 81001; 83880; 85025; 87635; 93005; 96372; 99217; 99219; 99224; 99285; A0425; A0429; A9270; G0378; J0696; U0002

== ENCOUNTER 2021-07-04 13:28 | Emergency (ER) | payer OTHER ==
[2021-07-04 14:05] VITALS: BP 126/67; PULSE 73
[2021-07-04] MEDS ORDERED: traMADol 50 MG Tab ONE (14:30)
== END 2021-07-04 15:00 | disposition home or self-care (01) ==
LOC: LB.ED 13:28
DX: I49.3 Ventricular premature depolarization (principal); I48.91 Unspecified atrial fibrillation; I10 Essential (primary) hypertension; G20 Parkinson's disease; Z79.82 Long term (current) use of aspirin; Z79.899 Other long term (current) drug therapy
CPT/HCPCS: 99283; A9270-GY

== ENCOUNTER 2021-07-31 17:18 | Emergency (ER) | payer OTHER ==
[2021-07-31] MEDS ORDERED: Sodium Chloride 0.9% 10 ML Syringe FLUSH PRN (17:37)
[2021-07-31] MEDS: Sodium Chloride 0.9% 1,000 ML IV ONE (18:05)
[2021-07-31 18:19] VITALS: BP 105/64; PULSE 96
[2021-07-31] MEDS: Piperacillin/Tazobactam 4.5 GM in Sodium Chloride 0.9% 100 ML IV ONE (18:56)
[2021-07-31] MEDS: Sodium Chloride 0.9% 1,000 ML IV SCH (19:10)
[2021-07-31] MEDS: Acetaminophen 325 MG Tab ONE ×2 (19:38→19:39)
[2021-07-31] MEDS ORDERED: Norepinephrine 8 MG in Dextrose 5% in Water 250 ML IV SCH ×2 (20:15)
== END 2021-07-31 20:40 ==
LOC: LB.ED 17:18
DX: A41.9 Sepsis, unspecified organism (principal); R65.21 Severe sepsis with septic shock; I48.91 Unspecified atrial fibrillation; Z79.82 Long term (current) use of aspirin
CPT/HCPCS: 36415; 71045; 80053; 83605; 84484; 85025; 87040; 93005; 93010; 96365; 96368; 99281; 99285-25; A0425; A0429; A9270-GY; J2543; J3370; J3490; J7030; J7050; U0002

== ENCOUNTER 2022-06-20 08:05 | Emergency (ER) | payer OTHER ==
[2022-06-20] MEDS: Albuterol/Ipratropium 3.0-0.5 MG/3 ML Neb Soln NEB ONE (09:42)
[2022-06-20 10:19] LABS: ESTIMATED GFR 95 mL/min (>60)
[2022-06-20 10:34] VITALS: BP 140/79; PULSE 86
== END 2022-06-20 11:30 | disposition home or self-care (01) ==
LOC: LB.ED 08:05
DX: U07.1 COVID-19 (principal); I48.91 Unspecified atrial fibrillation; I10 Essential (primary) hypertension; Z87.891 Personal history of nicotine dependence; Z79.82 Long term (current) use of aspirin; Z79.899 Other long term (current) drug therapy
CPT/HCPCS: 36415; 71045; 80053; 83605; 83880; 84484; 85025; 93005; 94640; 99285; A0425; A0429; J7620; U0002

== ENCOUNTER 2024-01-31 11:38 | Emergency (ER) | payer OTHER ==
[2024-01-31 12:27] LABS: HEMATOCRIT 28.1 % (40.0-54.0); HEMOGLOBIN 9.1 g/dL (13.0-18.0); MEAN CORPUSCULAR HEMOGLOBIN 28.3 pg (27.0-32.0); MEAN CORPUSCULAR HGB CONC 32.4 g/dL (31.0-35.0); MEAN PLATELET VOLUME 9.4 fL (6.0-10.0); RED BLOOD CELL COUNT 3.21 M/uL (4.50-6.50); RED CELL DISTRIBUTION WIDTH 15.4 % (11.0-16.0)
[2024-01-31 12:31] VITALS: BP 112/54; PULSE 63
[2024-01-31 12:41] LABS: ALBUMIN 3.3 g/dL (3.4-5.0); ANION GAP 10.4 mmol/L (5.0-15.0); BILIRUBIN TOTAL 0.3 mg/dL (0.0-1.0); BUN/CREATININE RATIO 25.8 (6-25); CALCIUM 8.6 mg/dL (8.5-10.1); CARBON DIOXIDE,CO2 28.3 mmol/L (21.0-32.0); CREATININE 0.66 mg/dL (0.70-1.30); EST CRCL DRUG DOSING (CG) 96.71 mL/min; POTASSIUM,K 3.7 mmol/L (3.5-5.1); PROTEIN TOTAL,TP 6.7 g/dL (6.4-8.2)
== END 2024-01-31 13:05 | disposition home or self-care (01) ==
LOC: LB.ED 11:38
DX: K92.1 Melena (principal); I10 Essential (primary) hypertension; Z87.891 Personal history of nicotine dependence; Z79.899 Other long term (current) drug therapy
CPT/HCPCS: 36415; 80053; 85027; 99284

== ENCOUNTER 2024-03-22 16:31 | Inpatient (IN) | payer OTHER, MEDICARE ==
[2024-03-22] MEDS: Sodium Chloride 0.9% 1,000 ML IV ONE (16:53)
[2024-03-22 16:54] LABS: BASOPHILS ABSOLUTE AUTO 0.02 K/uL (0.02-0.10); BASOPHILS PERCENT AUTO 0.2 % (0.0-0.5); HEMATOCRIT 32.4 % (40.0-54.0); HEMOGLOBIN 10.7 g/dL (13.0-18.0); LYMPHOCYTES ABSOLUTE AUTO 0.75 K/uL (1.50-4.00); LYMPHOCYTES PERCENT AUTO 6.8 % (20.0-40.0); MEAN CORPUSCULAR HEMOGLOBIN 25.7 pg (27.0-32.0); MEAN CORPUSCULAR VOLUME 78 fL (76-96); MEAN PLATELET VOLUME 9.2 fL (6.0-10.0); MONOCYTES ABSOLUTE AUTO 0.64 K/uL (0.20-0.80); MONOCYTES PERCENT AUTO 5.8 % (3.0-10.0); NEUTROPHILS ABSOLUTE AUTO 9.58 K/uL (2.00-7.50); NEUTROPHILS PERCENT AUTO 87.2 % (45.0-70.0); PLATELET COUNT,PLT 223 K/uL (150-400); RED BLOOD CELL COUNT 4.16 M/uL (4.50-6.50); RED CELL DISTRIBUTION WIDTH 15.3 % (11.0-16.0)
[2024-03-22 17:20] LABS: INR 1.1 (1.0-3.5); PTT,PARTIAL THROMBOPLSTIN TIME 30.8 SECONDS (24.4-33.2)
[2024-03-22 17:23] LABS: PROTHROMBIN TIME 11.4 sec (9.0-11.5)
[2024-03-22 17:28] LABS: A/G RATIO 0.7 (0.8-2.0); ALBUMIN 2.6 g/dL (3.4-5.0); ANION GAP 13.3 mmol/L (5.0-15.0); BILIRUBIN TOTAL 0.5 mg/dL (0.0-1.0); BUN/CREATININE RATIO 12.1 (6-25); CREATININE 0.91 mg/dL (0.70-1.30); POTASSIUM,K 3.3 mmol/L (3.5-5.1); PROTEIN TOTAL,TP 6.5 g/dL (6.4-8.2)
[2024-03-22 17:43] LABS: EST CRCL DRUG DOSING (CG) 72.31 mL/min
[2024-03-22 17:43] LABS: INFLUENZA A NAA NEGATIVE (NEGATIVE); INFLUENZA B NAA NEGATIVE (NEGATIVE); RESPIRATORY SYNCYTIAL VIR NAA NEGATIVE (NEGATIVE)
[2024-03-22 17:46] LABS: CORONAVIRUS COVID-19 NAA NEGATIVE (NEGATIVE)
[2024-03-22 18:14] LABS: APPEARANCE,URINE CLOUDY (CLEAR); COLOR,URINE YELLOW; GLUCOSE,URINE NEGATIVE (NEGATIVE); PH,URINE 5.5 (5.0-8.0); PROTEIN,URINE 100 mg/dL (NEGATIVE)
[2024-03-22 18:15] LABS: BACTERIA,URINE MANY /HPF; BILIRUBIN,URINE NEGATIVE (NEGATIVE); KETONES,URINE NEGATIVE (NEGATIVE); LEUKOCYTE ESTERASE,URINE SMALL (NEGATIVE); NITRITE,URINE POSITIVE (NEGATIVE); OCCULT BLOOD,URINE SMALL (NEGATIVE); RBC,URINE 0-5 /HPF; SQUAMOUS EPITHELIAL CELLS,UR FEW /HPF; UROBILINOGEN,URINE 0.2 E.U./dL (0.2-1.0); WBC,URINE 50-75 /HPF
[2024-03-22 18:16] LABS: COARSE GRANULAR CASTS,URINE OCCASIONAL /HPF; FINE GRANULAR CASTS,URINE FEW /HPF
[2024-03-22] MEDS: Potassium Chloride Riders 10 MEQ in Premix Bag 1 BAG IV ONE (18:46)
[2024-03-22] MEDS: Potassium Chloride Riders 50 ML ONE (18:54)
[2024-03-22] MEDS: Levofloxacin/Dextrose 5%-Water 750 MG in Levofloxacin/Dextrose 5%-Water 150 ML IV ONE (19:01)
[2024-03-22] MEDS: Sodium Chloride 0.9% 1,000 ML IV SCH (19:15)
[2024-03-22] MEDS ORDERED: guaiFENesin 600 MG Tab.ER PO PRN (20:15)
[2024-03-22] MEDS ORDERED: Albuterol 6.7 GM Inhaler INH PRN ×3 (20:15→21:48)
[2024-03-22] MEDS ORDERED: Nitroglycerin 0.4 MG Tab.SL SL SCH ×2 (20:15→20:30)
[2024-03-22] MEDS: diphenhydrAMINE 50 MG Cap PO SCH (22:13)
[2024-03-22] MEDS: atorvaSTATin 20 MG Tab PO SCH (22:13)
[2024-03-22] MEDS: Gabapentin 100 MG Cap PO SCH (22:14)
[2024-03-22] MEDS: Carbidopa/Levodopa 50-200 MG Tab.ER PO SCH (22:14)
[2024-03-22] MEDS: Acetaminophen 500 MG Tab PO SCH (22:14)
[2024-03-23] MEDS ORDERED: Metoprolol Succinate 50 MG Tab.ER PO SCH (08:00)
[2024-03-23] MEDS ORDERED: [UNRECOGNIZED DRUG - OTHER] PO SCH (08:00)
[2024-03-23] MEDS ORDERED: CARBIDOPA PO SCH (08:00)
[2024-03-23] MEDS ORDERED: Carbidopa/Levodopa 50-200 MG Tab.ER PO SCH (08:00)
[2024-03-23] MEDS ORDERED: atorvaSTATin 20 MG Tab PO SCH (08:00)
[2024-03-23] MEDS ORDERED: LEVODOPA PO SCH (08:00)
[2024-03-23 08:40] LABS: BASOPHILS ABSOLUTE AUTO 0.01 K/uL (0.02-0.10); BASOPHILS PERCENT AUTO 0.1 % (0.0-0.5); EOSINOPHILS ABSOLUTE AUTO 0.01 K/uL (0.04-0.40); EOSINOPHILS PERCENT AUTO 0.1 % (1.0-5.0); HEMATOCRIT 31.9 % (40.0-54.0); HEMOGLOBIN 10.3 g/dL (13.0-18.0); LYMPHOCYTES ABSOLUTE AUTO 0.44 K/uL (1.50-4.00); LYMPHOCYTES PERCENT AUTO 4.3 % (20.0-40.0); MEAN CORPUSCULAR HEMOGLOBIN 25.5 pg (27.0-32.0); MEAN CORPUSCULAR HGB CONC 32.3 g/dL (31.0-35.0); MEAN CORPUSCULAR VOLUME 79 fL (76-96); MEAN PLATELET VOLUME 9.9 fL (6.0-10.0); MONOCYTES ABSOLUTE AUTO 0.69 K/uL (0.20-0.80); MONOCYTES PERCENT AUTO 6.7 % (3.0-10.0); NEUTROPHILS PERCENT AUTO 88.8 % (45.0-70.0); PLATELET COUNT,PLT 210 K/uL (150-400); RED BLOOD CELL COUNT 4.04 M/uL (4.50-6.50); RED CELL DISTRIBUTION WIDTH 15.3 % (11.0-16.0); WHITE BLOOD CELL COUNT,WBC 10.3 K/uL (4.0-11.0)
[2024-03-23 09:05] LABS: A/G RATIO 0.6 (0.8-2.0); ALBUMIN 2.3 g/dL (3.4-5.0); BILIRUBIN TOTAL 0.4 mg/dL (0.0-1.0); BUN/CREATININE RATIO 10.1 (6-25); CALCIUM 7.9 mg/dL (8.5-10.1); CARBON DIOXIDE,CO2 25.5 mmol/L (21.0-32.0); CREATININE 0.79 mg/dL (0.70-1.30); EST CRCL DRUG DOSING (CG) 81.36 mL/min; POTASSIUM,K 3.5 mmol/L (3.5-5.1); PROTEIN TOTAL,TP 6.1 g/dL (6.4-8.2)
[2024-03-23] MEDS: Metoprolol Succinate 25 MG Tab.ER PO SCH (09:29)
[2024-03-23] MEDS: Enoxaparin 40 MG/0.4 ML Syringe SUBCUT SCH (09:29)
[2024-03-23] MEDS: Lactobacillus Acidophilus/Lactobacillus Sporogenes (Probiotic) Tab PO SCH (09:30)
[2024-03-23] MEDS: Potassium Chloride 10 MEQ Tab.ER PO SCH (09:30)
[2024-03-23] MEDS: PARoxetine 20 MG Tab PO SCH (09:30)
[2024-03-23] MEDS: Cholecalciferol (Vitamin D3) 2,000 Unit Cap PO SCH (09:30)
[2024-03-23] MEDS: Gabapentin 100 MG Cap PO SCH (09:31)
[2024-03-23] MEDS: Cyanocobalamin (Vitamin B12) 1,000 MCG Tab PO SCH (09:31)
[2024-03-23] MEDS: Furosemide 40 MG/4 ML VIAL IVPUSH ONE (11:36)
[2024-03-23] MEDS: VANCOmycin 1 GM SDV PO SCH (11:56)
[2024-03-23] MEDS ORDERED: Acetaminophen 500 MG Tab PO PRN (13:34)
[2024-03-23] MEDS: Carboxymethylcellulose Sodium 0.5% Ophth Soln 15 ML Bottle EYEBOTH PRN (14:59)
[2024-03-23] MEDS: Ibuprofen 600 MG Tab PO PRN (15:03)
[2024-03-23] MEDS ORDERED: Azithromycin 500 MG in Sodium Chloride 0.9% 250 ML IV SCH (15:15)
[2024-03-23] MEDS ORDERED: Albuterol/Ipratropium 3.0-0.5 MG/3 ML Neb Soln NEB SCH (15:15)
[2024-03-23] MEDS ORDERED: cefTRIAXone 1 GM in Sodium Chloride 0.9% 50 ML IV SCH (16:00)
[2024-03-23] MEDS: Azithromycin 500 MG in Sodium Chloride 0.9% 250 ML IV SCH (16:30)
[2024-03-23] MEDS: Albuterol/Ipratropium 3.0-0.5 MG/3 ML Neb Soln NEB SCH (16:30)
[2024-03-23] MEDS ORDERED: Zinc Oxide 20% Oint 56.7 GM Tube TOP PRN (18:39)
[2024-03-23] MEDS: cefTRIAXone 1 GM in Sodium Chloride 0.9% 50 ML IV SCH (19:59)
[2024-03-23] MEDS ORDERED: diphenhydrAMINE 50 MG Cap PO SCH (20:00)
[2024-03-23] MEDS ORDERED: Acetaminophen 500 MG Tab PO SCH (20:00)
[2024-03-23 23:26] LABS: BASOPHILS ABSOLUTE AUTO 0.02 K/uL (0.02-0.10); BASOPHILS PERCENT AUTO 0.3 % (0.0-0.5); EOSINOPHILS ABSOLUTE AUTO 0.02 K/uL (0.04-0.40); EOSINOPHILS PERCENT AUTO 0.3 % (1.0-5.0); HEMATOCRIT 32.9 % (40.0-54.0); HEMOGLOBIN 10.7 g/dL (13.0-18.0); LYMPHOCYTES ABSOLUTE AUTO 0.57 K/uL (1.50-4.00); LYMPHOCYTES PERCENT AUTO 7.8 % (20.0-40.0); MEAN CORPUSCULAR HEMOGLOBIN 25.5 pg (27.0-32.0); MEAN CORPUSCULAR HGB CONC 32.5 g/dL (31.0-35.0); MEAN CORPUSCULAR VOLUME 78 fL (76-96); MEAN PLATELET VOLUME 9.2 fL (6.0-10.0); MONOCYTES ABSOLUTE AUTO 0.46 K/uL (0.20-0.80); MONOCYTES PERCENT AUTO 6.3 % (3.0-10.0); NEUTROPHILS ABSOLUTE AUTO 6.23 K/uL (2.00-7.50); NEUTROPHILS PERCENT AUTO 85.3 % (45.0-70.0); PLATELET COUNT,PLT 198 K/uL (150-400); RED CELL DISTRIBUTION WIDTH 15.2 % (11.0-16.0); WHITE BLOOD CELL COUNT,WBC 7.3 K/uL (4.0-11.0)
[2024-03-23 23:44] LABS: A/G RATIO 0.6 (0.8-2.0); ALBUMIN 2.4 g/dL (3.4-5.0); ANION GAP 13.2 mmol/L (5.0-15.0); BILIRUBIN TOTAL 0.3 mg/dL (0.0-1.0); CALCIUM 8.2 mg/dL (8.5-10.1); CARBON DIOXIDE,CO2 27.9 mmol/L (21.0-32.0); CREATININE 1.09 mg/dL (0.70-1.30); EST CRCL DRUG DOSING (CG) 58.56 mL/min; POTASSIUM,K 3.1 mmol/L (3.5-5.1); PROTEIN TOTAL,TP 6.4 g/dL (6.4-8.2)
[2024-03-24 02:45] VITALS: BP 123/60; PULSE 95
== END 2024-03-24 02:42 | DRG 193 ==
LOC: LB.ED 16:31 → UNDOADMIN 20:10 → LB.MS 20:10
PROVIDERS: ADMIT Physician Assistant; ATTEND Physician Assistant
DX: J18.9 Pneumonia, unspecified organism (principal); J96.91 Respiratory failure, unspecified with hypoxia; N39.0 Urinary tract infection, site not specified; A04.72 Enterocolitis due to Clostridium difficile, not specified as recurrent; I48.91 Unspecified atrial fibrillation; I10 Essential (primary) hypertension; E78.00 Pure hypercholesterolemia, unspecified; G89.29 Other chronic pain; M54.9 Dorsalgia, unspecified; F15.90 Other stimulant use, unspecified, uncomplicated; E86.0 Dehydration; R19.7 Diarrhea, unspecified; R41.0 Disorientation, unspecified; F43.10 Post-traumatic stress disorder, unspecified; Z96.659 Presence of unspecified artificial knee joint; Z98.890 Other specified postprocedural states; Z99.3 Dependence on wheelchair; Z79.899 Other long term (current) drug therapy; Z79.51 Long term (current) use of inhaled steroids; Z79.1 Long term (current) use of non-steroidal anti-inflammatories (NSAID); Z79.02 Long term (current) use of antithrombotics/antiplatelets; Z89.612 Acquired absence of left leg above knee; Z89.611 Acquired absence of right leg above knee
CPT/HCPCS: 0241U; 36415; 51702; 70450; 71045; 71260; 80053; 81001; 82947; 83605; 83880; 84145; 84484; 85025; 85379; 85610; 85730; 87045; 87046; 87086; 87427; 87493; 93005; 93010; 94640; 96361; 96365; 96368; 97165-GO; 99222; 99232; 99238; 99285-25; A9270-GY; J0456; J0696; J1650; J1940; J1956; J3480; J3490; J7030; J7050; J7620

== ENCOUNTER 2024-05-24 14:15 | Emergency (ER) | payer OTHER, MEDICARE ==
[2024-05-24] MEDS ORDERED: metroNIDAZOLE 500 MG Tab ONE (15:00)
[2024-05-24] MEDS ORDERED: Sodium Chloride 0.9% 10 ML Syringe FLUSH PRN (16:08)
[2024-05-24 16:48] LABS: HEMATOCRIT 35.2 % (40.0-54.0); HEMOGLOBIN 11.3 g/dL (13.0-18.0); MEAN CORPUSCULAR HEMOGLOBIN 24.2 pg (27.0-32.0); MEAN CORPUSCULAR HGB CONC 32.1 g/dL (31.0-35.0); RED BLOOD CELL COUNT 4.66 M/uL (4.50-6.50); WHITE BLOOD CELL COUNT,WBC 13.2 K/uL (4.0-11.0)
[2024-05-24 17:08] LABS: A/G RATIO 0.8 (0.8-2.0); ALANINE AMINOTRANSFERASE,ALT 12 U/L (12-78); ALBUMIN 3.2 g/dL (3.4-5.0); ALKALINE PHOSPHATASE 98 U/L (46-116); ANION GAP 13.1 mmol/L (5.0-15.0); ASPARTATE AMNIOTRANSFERASE,AST 14 U/L (15-37); BILIRUBIN TOTAL 0.5 mg/dL (0.0-1.0); BLOOD UREA NITROGEN,BUN 8 mg/dL (8-26); BUN/CREATININE RATIO 9.5 (6-25); C-REACTIVE PROTEIN 139.4 mg/L (<5.0); CALCIUM 8.6 mg/dL (8.5-10.1); CARBON DIOXIDE,CO2 27.2 mmol/L (21.0-32.0); CHLORIDE,CL 99 mmol/L (98-107); CREATININE 0.84 mg/dL (0.70-1.30); ESTIMATED GFR 91 mL/min (>60); GLUCOSE RANDOM 117 mg/dL (74-100); POTASSIUM,K 3.3 mmol/L (3.5-5.1); PROTEIN TOTAL,TP 7.3 g/dL (6.4-8.2); SODIUM,NA 136 mmol/L (136-145)
[2024-05-24] MEDS: Lactated Ringers 1,000 ML IV SCH (17:24)
[2024-05-24 19:11] LABS: APPEARANCE,URINE CLEAR (CLEAR); COLOR,URINE YELLOW; PH,URINE 5.5 (5.0-8.0); PROTEIN,URINE 100 mg/dL (NEGATIVE)
[2024-05-24 19:12] LABS: BILIRUBIN,URINE NEGATIVE (NEGATIVE); GLUCOSE,URINE NEGATIVE (NEGATIVE); KETONES,URINE NEGATIVE (NEGATIVE); LEUKOCYTE ESTERASE,URINE NEGATIVE (NEGATIVE); NITRITE,URINE NEGATIVE (NEGATIVE); OCCULT BLOOD,URINE TRACE-INTACT (NEGATIVE); RBC,URINE 0-5 /HPF; UROBILINOGEN,URINE 0.2 E.U./dL (0.2-1.0); WBC,URINE 0-5 /HPF
[2024-05-24] MEDS: Sodium Chloride 0.9% 50 ML SDV FLUSH SCH (20:16)
[2024-05-24] MEDS: Iopamidol 612 MG/ML 100 ML Bottle IV PRN (20:16)
[2024-05-24] MEDS: metroNIDAZOLE/Normal Saline 500 MG in Premix Bag 1 BAG IV ONE (21:27)
[2024-05-25 03:50] VITALS: BP 123/56; PULSE 98
== END 2024-05-24 23:00 | disposition home or self-care (01) ==
LOC: LB.ED 14:15
DX: R10.31 Right lower quadrant pain (principal); R10.32 Left lower quadrant pain; I10 Essential (primary) hypertension; E78.00 Pure hypercholesterolemia, unspecified; Z86.16 Personal history of COVID-19; Z79.51 Long term (current) use of inhaled steroids; Z79.899 Other long term (current) drug therapy
CPT/HCPCS: 36415; 71045; 74177; 80053; 81001; 85027; 86140; 96361; 96365; 99284; 99284-25; A9270-GY; J1836; J3490; J7120; Q9967

== ENCOUNTER 2024-05-25 15:53 | Inpatient (IN) | payer OTHER, MEDICARE ==
[2024-05-25] MEDS ORDERED: Sodium Chloride 0.9% 10 ML Syringe FLUSH PRN (15:56)
[2024-05-25 16:11] LABS: HEMOGLOBIN 10.3 g/dL (13.0-18.0); MEAN CORPUSCULAR HEMOGLOBIN 24.2 pg (27.0-32.0); MEAN CORPUSCULAR HGB CONC 32.2 g/dL (31.0-35.0); MEAN PLATELET VOLUME 8.9 fL (6.0-10.0); RED BLOOD CELL COUNT 4.26 M/uL (4.50-6.50); RED CELL DISTRIBUTION WIDTH 17.6 % (11.0-16.0); WHITE BLOOD CELL COUNT,WBC 12.9 K/uL (4.0-11.0)
[2024-05-25 16:30] LABS: A/G RATIO 0.8 (0.8-2.0); ALANINE AMINOTRANSFERASE,ALT 7 U/L (12-78); ALBUMIN 2.7 g/dL (3.4-5.0); ALKALINE PHOSPHATASE 88 U/L (46-116); ANION GAP 14.4 mmol/L (5.0-15.0); ASPARTATE AMNIOTRANSFERASE,AST 10 U/L (15-37); BILIRUBIN TOTAL 0.6 mg/dL (0.0-1.0); BLOOD UREA NITROGEN,BUN 7 mg/dL (8-26); BUN/CREATININE RATIO 9.1 (6-25); C-REACTIVE PROTEIN 169.1 mg/L (<5.0); CALCIUM 8.2 mg/dL (8.5-10.1); CARBON DIOXIDE,CO2 25.4 mmol/L (21.0-32.0); CHLORIDE,CL 100 mmol/L (98-107); CREATININE 0.77 mg/dL (0.70-1.30); ESTIMATED GFR 93 mL/min (>60); GLUCOSE RANDOM 124 mg/dL (74-100); PROTEIN TOTAL,TP 6.3 g/dL (6.4-8.2); SODIUM,NA 137 mmol/L (136-145)
[2024-05-25 16:44] LABS: POTASSIUM,K 2.8 mmol/L (3.5-5.1)
[2024-05-25] MEDS: Potassium Chloride Riders 10 MEQ in Premix Bag 1 BAG IV ONE (16:54)
[2024-05-25] MEDS: Sodium Chloride 0.9% 1,000 ML IV SCH (17:00)
[2024-05-25] MEDS: Potassium Chloride Riders 50 ML ONE ×2 (17:02→21:03)
[2024-05-25] MEDS ORDERED: Ondansetron 4 MG/2 ML SDV IV PRN (17:26)
[2024-05-25] MEDS ORDERED: Sodium Chloride 0.9% 1,000 ML IV SCH (17:30)
[2024-05-25] MEDS ORDERED: Albuterol 6.7 GM Inhaler INH PRN ×3 (18:08→19:52)
[2024-05-25] MEDS ORDERED: LEVODOPA PO SCH ×2 (20:00)
[2024-05-25] MEDS ORDERED: CARBIDOPA PO SCH ×2 (20:00)
[2024-05-25] MEDS ORDERED: [UNRECOGNIZED DRUG - OTHER] PO SCH ×2 (20:00)
[2024-05-25] MEDS: metroNIDAZOLE/Normal Saline 500 MG in Premix Bag 1 BAG IV SCH (20:09)
[2024-05-25] MEDS: Gabapentin 100 MG Cap PO SCH (20:09)
[2024-05-25] MEDS: metroNIDAZOLE/Normal Saline 100 ML ONE (20:10)
[2024-05-25] MEDS: Ciprofloxacin in D5W 400 MG in Premix Bag 1 BAG IV ONE ×2 (20:33→22:14)
[2024-05-25] MEDS: Ciprofloxacin in D5W 200 ML ONE (21:03)
[2024-05-25] MEDS: Potassium Chloride Riders 10 MEQ in Premix Bag 1 BAG IV SCH (21:19)
[2024-05-26] MEDS: metroNIDAZOLE/Normal Saline 100 ML ONE (02:43)
[2024-05-26] MEDS: metroNIDAZOLE/Normal Saline 500 MG in Premix Bag 1 BAG IV SCH (07:11)
[2024-05-26] MEDS: Potassium Chloride Riders 50 ML ONE ×2 (07:43→20:09)
[2024-05-26] MEDS: Cholecalciferol (Vitamin D3) 2,000 Unit Cap PO SCH (07:47)
[2024-05-26] MEDS: Cyanocobalamin (Vitamin B12) 1,000 MCG Tab PO SCH (07:47)
[2024-05-26] MEDS: Lactobacillus Acidophilus/Lactobacillus Sporogenes (Probiotic) Tab PO SCH (07:48)
[2024-05-26] MEDS: Metoprolol Succinate 25 MG Tab.ER PO SCH (07:50)
[2024-05-26] MEDS: PARoxetine 20 MG Tab PO SCH (07:52)
[2024-05-26] MEDS: atorvaSTATin 20 MG Tab PO SCH (07:52)
[2024-05-26] MEDS: Multivitamin Tab PO SCH (07:52)
[2024-05-26] MEDS ORDERED: Ciprofloxacin in D5W 400 MG in Premix Bag 1 BAG IV SCH (08:00)
[2024-05-26 08:12] LABS: APPEARANCE,URINE CLEAR (CLEAR); COLOR,URINE YELLOW; PH,URINE 5.5 (5.0-8.0)
[2024-05-26 08:13] LABS: BILIRUBIN,URINE NEGATIVE (NEGATIVE); GLUCOSE,URINE NEGATIVE (NEGATIVE); KETONES,URINE 15 mg/dL (NEGATIVE); LEUKOCYTE ESTERASE,URINE NEGATIVE (NEGATIVE); NITRITE,URINE NEGATIVE (NEGATIVE); OCCULT BLOOD,URINE NEGATIVE (NEGATIVE); PROTEIN,URINE 100 mg/dL (NEGATIVE); RBC,URINE NOT SEEN /HPF; UROBILINOGEN,URINE 0.2 E.U./dL (0.2-1.0); WBC,URINE 0-5 /HPF
[2024-05-26] MEDS: Carbidopa/Levodopa 50-200 MG Tab.ER PO SCH (08:36)
[2024-05-26] MEDS: Ciprofloxacin in D5W 400 MG in Premix Bag 1 BAG IV SCH (08:40)
[2024-05-26] MEDS: Ciprofloxacin in D5W 200 ML ONE (08:44)
[2024-05-26 09:55] LABS: HEMATOCRIT 29.5 % (40.0-54.0); HEMOGLOBIN 9.5 g/dL (13.0-18.0); MEAN CORPUSCULAR HEMOGLOBIN 24.5 pg (27.0-32.0); MEAN CORPUSCULAR HGB CONC 32.2 g/dL (31.0-35.0); MEAN PLATELET VOLUME 9.1 fL (6.0-10.0); RED BLOOD CELL COUNT 3.88 M/uL (4.50-6.50); RED CELL DISTRIBUTION WIDTH 17.2 % (11.0-16.0)
[2024-05-26] MEDS ORDERED: Ondansetron 4 MG Tab.DIS PO PRN (10:18)
[2024-05-26 10:22] LABS: ANION GAP 13.8 mmol/L (5.0-15.0); BUN/CREATININE RATIO 7.9 (6-25); C-REACTIVE PROTEIN 155.5 mg/L (<5.0); CALCIUM 7.9 mg/dL (8.5-10.1); CARBON DIOXIDE,CO2 26.5 mmol/L (21.0-32.0); CREATININE 0.76 mg/dL (0.70-1.30); EST CRCL DRUG DOSING (CG) 86.42 mL/min; POTASSIUM,K 3.3 mmol/L (3.5-5.1)
[2024-05-26] MEDS: metroNIDAZOLE 500 MG Tab PO SCH (10:47)
[2024-05-26] MEDS: Enoxaparin 40 MG/0.4 ML Syringe SUBCUT ONE (10:48)
[2024-05-26] MEDS ORDERED: Carbidopa/Levodopa 25-100 MG Tab PO SCH (12:00)
[2024-05-26] MEDS: Lactated Ringers 1,000 ML IV SCH (12:26)
[2024-05-26] MEDS: Carbidopa/Levodopa 25-100 MG Tab PO SCH (12:26)
[2024-05-26] MEDS: Zinc Oxide 20% Oint 56.7 GM Tube TOP PRN (14:26)
[2024-05-27 08:34] LABS: HEMATOCRIT 30.9 % (40.0-54.0); MEAN CORPUSCULAR HEMOGLOBIN 24.2 pg (27.0-32.0); MEAN CORPUSCULAR HGB CONC 32.4 g/dL (31.0-35.0); MEAN PLATELET VOLUME 9.3 fL (6.0-10.0); RED BLOOD CELL COUNT 4.14 M/uL (4.50-6.50); RED CELL DISTRIBUTION WIDTH 17.3 % (11.0-16.0); WHITE BLOOD CELL COUNT,WBC 8.8 K/uL (4.0-11.0)
[2024-05-27 08:52] LABS: A/G RATIO 0.7 (0.8-2.0); ALBUMIN 2.6 g/dL (3.4-5.0); BUN/CREATININE RATIO 7.3 (6-25); C-REACTIVE PROTEIN 126.9 mg/L (<5.0); CALCIUM 8.2 mg/dL (8.5-10.1); CARBON DIOXIDE,CO2 25.3 mmol/L (21.0-32.0); CREATININE 0.55 mg/dL (0.70-1.30); EST CRCL DRUG DOSING (CG) 119.42 mL/min; PROTEIN TOTAL,TP 6.5 g/dL (6.4-8.2)
[2024-05-27 09:20] LABS: BILIRUBIN TOTAL 0.4 mg/dL (0.0-1.0)
[2024-05-27 09:35] LABS: ANION GAP 15.4 mmol/L (5.0-15.0); POTASSIUM,K 2.7 mmol/L (3.5-5.1)
[2024-05-27] MEDS: Potassium Chloride Riders 50 ML IV ONE (10:33)
[2024-05-27] MEDS: Potassium Chloride 20 MEQ Tab.ER PO ONE (10:35)
[2024-05-27 12:41] VITALS: BP 102/53; PULSE 91
== END 2024-05-27 13:20 | disposition home or self-care (01) | DRG 641 ==
LOC: LB.ED 15:53 → LB.MS 17:34
PROVIDERS: ADMIT Surgery; ATTEND Surgery
DX: E87.6 Hypokalemia (principal); H54.7 Unspecified visual loss; I48.91 Unspecified atrial fibrillation; E78.00 Pure hypercholesterolemia, unspecified; I10 Essential (primary) hypertension; M19.90 Unspecified osteoarthritis, unspecified site; G20.A1 Parkinson's disease without dyskinesia, without mention of fluctuations; F41.8 Other specified anxiety disorders; E55.9 Vitamin D deficiency, unspecified; E53.8 Deficiency of other specified B group vitamins; E86.0 Dehydration; K52.9 Noninfective gastroenteritis and colitis, unspecified; K52.89 Other specified noninfective gastroenteritis and colitis; Z98.890 Other specified postprocedural states; Z89.9 Acquired absence of limb, unspecified; Z79.899 Other long term (current) drug therapy
CPT/HCPCS: 36415; 51701; 80048; 80053; 81001; 83605; 85027; 86140; 87040; 87428-QW; 87493; 96365; 99222; 99232; 99238; 99285-25; A0425; A0428; A9270-GY; J0744; J1650; J1836; J3480; J7030; J7120